=== PATIENT | female | born 2000 | race Caucasian/White ===

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

== ENCOUNTER 2022-04-19 07:34 | Emergency (ER) | payer SELFPAY ==
[~2022-04-19] VITALS: Ht 162 cm; Wt 76.2 kg
[~2022-04-19 07:34] MED LIST changes: +ACET-93 PO; -CLIN150C17 PO; +CLIN150C20 PO; +DOCU100C37 PO; +IBUP-1780 PO; +OXC5T PO
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
[2022-04-19 08:09] LABS: BILIRUBIN,URINE NEGATIVE (NEGATIVE); CLARITY,URINE CLEAR; COLOR,URINE YELLOW; GLUCOSE, URINE (UA) NEGATIVE (NEGATIVE); KETONES,URINE NEGATIVE (NEGATIVE); LEUKOCYTE ESTERASE ,URINE NEGATIVE (NEGATIVE); NITRITE,URINE NEGATIVE (NEGATIVE); PROTEIN,URINE NEGATIVE (NEGATIVE)
[2022-04-19 08:19] LABS: BACTERIA,URINE NEGATIVE /HPF; SQUAMOUS EPITHELIAL CELL,UR RARE /HPF; WBC,URINE RARE /HPF
[2022-04-19 08:24] LABS: BASOPHILS % (AUTO) 1 % (0-10); EOSINOPHILS # (AUTO) 0.4 10^3/uL (0.0-0.3); EOSINOPHILS % (AUTO) 6 % (0-10); HEMATOCRIT 42 % (35-52); HEMOGLOBIN 14.7 g/dL (11.5-16.0); LYMPHOCYTES # (AUTO) 2.1 10^3/uL (1.0-4.0); LYMPHOCYTES % (AUTO) 32 % (12-44); MEAN CORPUSCULAR HEMOGLOBIN 28 pg (25-34); MEAN CORPUSCULAR HGB CONC 35 g/dL (32-36); MEAN CORPUSCULAR VOLUME 81 fL (80-99); MEAN PLATELET VOLUME 10.8 fL (9.0-12.2); MONOCYTES # (AUTO) 0.5 10^3/uL (0.0-1.0); MONOCYTES % (AUTO) 7 % (0-12); NEUTROPHILS # (AUTO) 3.5 10^3/uL (1.8-7.8); NEUTROPHILS % (AUTO) 53 % (42-75); PLATELET COUNT 220 10^3/uL (130-400); WHITE BLOOD COUNT 6.5 10^3/uL (4.3-11.0)
[2022-04-19 08:34] LABS: POTASSIUM 3.8 MMOL/L (3.6-5.0)
[2022-04-19 08:36] LABS: CALCIUM 9.6 MG/DL (8.5-10.1)
[2022-04-19 08:40] LABS: CREATININE SERUM 0.8 MG/DL (0.60-1.30)
--- NOTE | 2022-04-19 09:06 | Diagnostic Imaging Report ---
DATE: 04/19/2022 9:01 AM REASON FOR EXAM: Miscarriage. Follow-up. Vaginal bleeding. COMPARISON: None. TECHNIQUE: Transabdominal and transvaginal ultrasound was performed. FINDINGS: The uterus measures 6.7 x 3.8 x 5.8 cm. The endometrium measures 1.2 cm in thickness. No evidence of intrauterine gestation. No focal uterine mass. The bilateral ovaries are well visualized and have a normal appearance. The right ovary measures 3.5 x 1.9 x 1.8 cm. The left ovary measures 3.3 x 2.1 x 2.6 cm. No free fluid is visualized within the posterior cul-de-sac. IMPRESSION: 1. No evidence of intrauterine gestation. No findings to suggest retained products of conception. 2. Normal appearance of the ovaries. No evidence of ectopic . No free fluid. Dictated by: Dictated on workstation # [id number]
[2022-04-19 10:00] VITALS: BP 147/96
== END 2022-04-19 09:59 | disposition home or self-care (01) ==
LOC: EDUNIT# 07:34 → ER 07:37
DX: N93.9 Abnormal uterine and vaginal bleeding, unspecified (principal); F41.9 Anxiety disorder, unspecified; R00.0 Tachycardia, unspecified; Z28.310 Unvaccinated for COVID-19
CPT/HCPCS: 36415; 76801; 76817; 80048; 81000; 84703; 85025; 86900; 86901

== ENCOUNTER 2022-06-26 20:20 | Emergency (ER) | payer MEDICAID ==
[~2022-06-26] VITALS: Ht 162.5 cm; Wt 79.0 kg
[2022-06-26 21:04] LABS: BASOPHILS % (AUTO) 0 % (0-10); EOSINOPHILS # (AUTO) 0.5 10^3/uL (0.0-0.3); EOSINOPHILS % (AUTO) 5 % (0-10); HEMATOCRIT 39 % (35-52); HEMOGLOBIN 13.3 g/dL (11.5-16.0); LYMPHOCYTES # (AUTO) 3.5 10^3/uL (1.0-4.0); LYMPHOCYTES % (AUTO) 32 % (12-44); MEAN CORPUSCULAR HEMOGLOBIN 28 pg (25-34); MEAN CORPUSCULAR HGB CONC 35 g/dL (32-36); MEAN CORPUSCULAR VOLUME 81 fL (80-99); MEAN PLATELET VOLUME 10.5 fL (9.0-12.2); MONOCYTES # (AUTO) 0.7 10^3/uL (0.0-1.0); MONOCYTES % (AUTO) 6 % (0-12); NEUTROPHILS % (AUTO) 56 % (42-75); PLATELET COUNT 263 10^3/uL (130-400); WHITE BLOOD COUNT 10.7 10^3/uL (4.3-11.0)
[2022-06-26 21:45] LABS: BILIRUBIN,URINE NEGATIVE (NEGATIVE); CLARITY,URINE CLEAR; COLOR,URINE YELLOW; GLUCOSE, URINE (UA) NEGATIVE (NEGATIVE); KETONES,URINE NEGATIVE (NEGATIVE); LEUKOCYTE ESTERASE ,URINE NEGATIVE (NEGATIVE); NITRITE,URINE NEGATIVE (NEGATIVE); PROTEIN,URINE NEGATIVE (NEGATIVE)
[2022-06-26 22:00] LABS: BACTERIA,URINE TRACE /HPF; WBC,URINE 0-2 /HPF
--- NOTE | 2022-06-26 23:12 | ED Fall/Injury ---
General Chief Complaint: OB < 20 WEEKS Stated Complaint: FALL, 6 WEEKS , BLEEDING Nursing Triage Note: Pt presents with c/o vaginal bleeding after a fall down approx 14 steps. She reports she over stepped the top step fell back and slid down on bottom, and fell foward into a wall at bottom of steps. C/o R buttock pain and noted vaginal bleeding approx 15 min later. Source: patient Exam Limitations: no limitations History of Present Illness Date Seen by Provider: Jun 26, 2022 Time Seen by Provider: 20:25 Initial Comments This 22-year-old young lady presents to the emergency room with complaints of vaginal bleeding after falling down approximately 14 steps. Patient describes an incident in which her feet went out from underneath her and she fell backwards striking her right buttock on the stairs. She then slid down the stairs on her bottom. When she landed at the bottom of the stairs, she fell forward from a sitting position and bumped her face on the wall. She passed some clots of blood vaginally shortly after the event that has had no vaginal bleeding since. She has had some mild cramping without tenderness. She has some soreness at the right buttock, but she denies any significant injury elsewhere. She has no severe pain. Patient describes being in April and there is some controversy about what happened to that . She states then having a menstrual period on May 16 and now being again. Her obstetrical provider is Dr. Hammond. She has not yet had an ultrasound for this . Allergies and Home Medications Allergies Coded Allergies: Penicillins (Verified Allergy, Unknown, 10/01/16) Patient Home Medication List Home Medication List Reviewed: Yes Acetaminophen (Acetaminophen) 500 Mg Tablet, 1,000 MG PO Q6HR Prescribed by: JACQUELIN GUEVARA on 04/23/19550 Docusate Sodium (Docusate Sodium) 100 Mg Capsule, 100 MG PO BID Prescribed by: JACQUELIN MOTAS on 04/23/19550 Ibuprofen (Ibuprofen) 800 Mg Tablet, 800 MG PO Q8H Prescribed by: JACQUELIN E NAKULS on 04/23/19550 Oxycodone Hcl (Oxycodone IR) 5 Mg Tab, 5 MG PO Q4HR PRN for To achieve TAG Prescribed by: JACQUELIN GUEVARA on 04/23/19550 Vit No.124/Iron/FA ( Vitamin Tablet) 1 Each Tablet, 1 EACH PO DAILY, (Reported) Entered as Reported by: MIGUEL ÁNGEL SHAHID on 04/13/192021 Review of Systems Review of Systems Constitutional: no symptoms reported Eyes: No Symptoms Reported Ears, Nose, Mouth, Throat: no symptoms reported Respiratory: no symptoms reported Cardiovascular: no symptoms reported Gastrointestinal: no symptoms reported Genitourinary: see HPI : Yes Expected Date of Delivery: Feb 20, 2023 LMP: May 16, 2022 Musculoskeletal: see HPI Skin: no symptoms reported Psychiatric/Neurological: No Symptoms Reported Past Ookcbid-Cwvvao-Wjdovn Hx Patient Social History Tobacco Use?: No Substance use?: No Alcohol Use?: No Immunizations Up To Date Tetanus Booster (TDap): Less than 5yrs PED Vaccines UTD: Yes Influenza Vaccine Up-to-Date: No; Not Current Seasonal Allergies Seasonal Allergies: Yes Past Medical History Surgery/Hospitalization HX: sx- 2 c-sec Surgeries: Yes Section Respiratory: Yes Asthma Currently Using CPAP: No Currently Using BIPAP: No Cardiac: No Neurological: No : Yes Expected Date of Delivery: Feb 20, 2023 Last Menstrual Period: May 16, 2022 Female Reproductive Disorders: Denies Sexually Transmitted Disease: No HIV/AIDS: No Genitourinary: Yes (DURING , preeclampsia, placental abruption) UTI-Chronic Gastrointestinal: Yes Gastroesophageal Reflux Musculoskeletal: No Endocrine: Yes ("PRE-DIABETIC") HEENT: No Loss of Vision: Denies Hearing Impairment: Denies Cancer: No Psychosocial: Yes ("CUTTER"; 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) Anxiety, Suicide Attempts, Schizophrenia, Depression Integumentary: No Blood Disorders: No Family Medical History Alcoholism 19 FATHER Alzheimer's disease PATERANL GRANDFATHER Arthritis MATERNAL GRANDFATHER (RA) Asthma MATERNAL GRANDMOTHER Cardiovascular disease MATERNAL GRANDFATHER Coronary thrombosis MATERNAL GRANDFATHER Diabetes mellitus 19 MOTHER MATERNAL GRANDMOTHER Drug abuse 19 FATHER 19 MOTHER Hypercholesterolemia MATERNAL GRANDFATHER Hypertension 19 MOTHER MATERNAL GRANDFATHER Myocardial infarction MATERNAL GRANDFATHER Psychosocial problem G8 BROTHER Respiratory disorder MATERNAL GRANDMOTHER (COPD) No Pertinent Family Hx Physical Exam Vital Signs Vital Signs - First Documented 06/26/22 20:44 Temp 36.9 Pulse 97 Resp 18 B/P (MAP) 138/87 (104) Capillary Refill : Less Than 3 Seconds Height, Weight, BMI Height: 5'4.00" Weight: 195lbs. 0oz. 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, no motor/sensory deficits, alert, normal mood/affect, oriented x 3 Skin: normal color, warm/dry [place] Coma Score Best Eye Response: (4) Open Spontaneously Best Verbal Response: (5) Oriented Best Motor Response: (6) Obeys Commands Masoud Total: 15 Progress/Results/Core Measures Results/Orders Lab Results Laboratory Tests Test 06/26/22 20:57 06/26/22 21:34 Range/Units White Blood Count 10.7 4.3-11.0 10^3/uL Red Blood Count 4.78 3.80-5.11 10^6/uL Hemoglobin 13.3 11.5-16.0 g/dL Hematocrit 39 35-52 % Mean Corpuscular Volume 81 80-99 fL Mean Corpuscular Hemoglobin 28 25-34 pg Mean Corpuscular Hemoglobin Concent 35 32-36 g/dL Red Cell Distribution Width 12.3 10.0-14.5 % Platelet Count 263 130-400 10^3/uL Mean Platelet Volume 10.5 9.0-12.2 fL Immature Granulocyte % (Auto) 0 % Neutrophils (%) (Auto) 56 42-75 % Lymphocytes (%) (Auto) 32 12-44 % Monocytes (%) (Auto) 6 0-12 % Eosinophils (%) (Auto) 5 0-10 % Basophils (%) (Auto) 0 0-10 % Neutrophils # (Auto) 6.0 1.8-7.8 10^3/uL Lymphocytes # (Auto) 3.5 1.0-4.0 10^3/uL Monocytes # (Auto) 0.7 0.0-1.0 10^3/uL Eosinophils # (Auto) 0.5 H 0.0-0.3 10^3/uL Basophils # (Auto) 0.0 0.0-0.1 10^3/uL Immature Granulocyte # (Auto) 0.0 0.0-0.1 10^3/uL Human Chorionic Gonadotropin, Quant 2058 H <5 MIU/ML Urine Color YELLOW Urine Clarity CLEAR Urine pH 7.0 5-9 Urine Specific [place] 1.020 1.016-1.022 Urine Protein NEGATIVE NEGATIVE Urine Glucose (UA) NEGATIVE NEGATIVE Urine Ketones NEGATIVE NEGATIVE Urine Nitrite NEGATIVE NEGATIVE Urine Bilirubin NEGATIVE NEGATIVE Urine Urobilinogen 0.2 < = 1.0 MG/DL Urine Leukocyte Esterase NEGATIVE NEGATIVE Urine RBC (Auto) NEGATIVE NEGATIVE Urine RBC NONE /HPF Urine WBC 0-2 /HPF Urine Squamous Epithelial Cells 10-25 H /HPF Urine Crystals NONE /LPF Urine Bacteria TRACE /HPF Urine Casts NONE /LPF Urine Mucus NEGATIVE /LPF Urine Culture Indicated NO My Orders Orders - JOSE KING MD Cbc With Automated Diff (06/26/22 20:25) Hcg,Quantitative (06/26/22 20:25) Ua Culture If Indicated (06/26/22 20:26) Vital Signs/I&O 06/26/22 06/26/22 20:44 23:19 Temp 36.9 Pulse 97 88 Resp 18 20 B/P (MAP) 138/87 (104) 411/84 Blood Pressure Mean: 104 Progress Progress Note : Progress Note Blood type from prior visit was reviewed and was positive. RhoGAM was not necessary. Patient had a relatively unremarkable exam with minimal tenderness on the right buttock and no significant tenderness over the suprapubic region. hCG was low at around 4000. Urinalysis was normal. CBC was also normal. Patient was discharged with a prescription for ultrasound in the morning to ensure intrauterine and viability. Departure Impression Primary Impression: Fall down stairs Qualified Codes: W10.8XXA - Fall (on) (from) other stairs and steps, initial encounter Additional Impressions: Vaginal bleeding in Contusion, buttock Qualified Codes: S30.0XXA - Contusion of lower back and pelvis, initial encounter Disposition: 01 HOME, SELF-CARE Condition: Stable Departure-Patient Inst. Decision time for Depature: 23:08 Referrals: [facility] (PCP/Family) Primary Care Physician Patient Instructions: Bleeding in Early (DC) Add. Discharge Instructions: You may take Tylenol (acetaminophen) up to 1000 mg every 6 hours as needed for pain. You may return with your order form for ultrasound tomorrow morning at 7:30 AM. You also need to follow-up with Dr. Hammond at [facility] to have your hCG hormone level monitored. Return to care if you have worsening symptoms despite following these instructions. All discharge instructions reviewed with patient and/or family. Voiced understanding. Copy Copies To 1: BIA HAMMOND MD, JOSHUA T MD Jun 26, 2022 23:12
[2022-06-26 23:19] VITALS: BP 411/84
== END 2022-06-26 23:20 | disposition home or self-care (01) ==
LOC: EDUNIT# 20:20 → ER 20:23
DX: O9A.211 Injury, poisoning and certain other consequences of external causes complicating pregnancy, first trimester (principal); O20.9 Hemorrhage in early pregnancy, unspecified; S30.0XXA Contusion of lower back and pelvis, initial encounter; Z3A.01 Less than 8 weeks gestation of pregnancy; Z28.310 Unvaccinated for COVID-19; W10.8XXA Fall (on) (from) other stairs and steps, initial encounter; W22.8XXA Striking against or struck by other objects, initial encounter
CPT/HCPCS: 36415; 81000; 84702; 85025

== ENCOUNTER 2022-07-18 18:59 | Emergency (ER) | payer MEDICAID ==
[~2022-07-18] VITALS: Ht 172 cm; Wt 82.7 kg
--- NOTE | 2022-07-18 19:36 | ED GU-Female ---
General Chief Complaint: OB < 20 WEEKS Stated Complaint: HEAVY MENSTRAL Nursing Triage Note: patient states since sunday night she has been "bleeding" patient states she is 8.5 weeks preg. due in February. Patient states spotting and passing clots and "chunks" states color is dark to light pink. Source: patient Exam Limitations: no limitations History of Present Illness Date Seen by Provider: Jul 18, 2022 Time Seen by Provider: 19:08 Initial Comments 22-year-old [id number] female presents to the ED with reports of vaginal bleeding since Sunday. Reports she has had some pink spotting, dark red clots, and brown discharge. She reports lower abdominal cramping. She is in 8.5 weeks . She states she had an ultrasound a couple weeks ago which confirmed she had an intrauterine . She reports she has had intermittent fevers since Sunday. She reports nausea, and dizziness since the bleeding started. She denies chest pain, shortness of air, vomiting. She last normal bowel movement yesterday. Past medical history includes asthma, prediabetes, and she was preeclamptic with 2 of her previous pregnancies which resulted in early delivery by . Allergies and Home Medications Allergies Coded Allergies: Penicillins (Verified Allergy, Unknown, 10/01/16) Patient Home Medication List Home Medication List Reviewed: Yes Acetaminophen (Acetaminophen) 500 Mg Tablet, 1,000 MG PO Q6HR Prescribed by: JACQUELIN GUEVARA on 04/23/19550 Clotrimazole (Clotrimazole) 1 % Cr, 45 GM VG HS Prescribed by: Nidia Franks on 07/18/222204 Docusate Sodium (Docusate Sodium) 100 Mg Capsule, 100 MG PO BID Prescribed by: JACQUELIN GUEVARA on 04/23/19550 Ibuprofen (Ibuprofen) 800 Mg Tablet, 800 MG PO Q8H Prescribed by: JACQUELIN GUEVARA on 04/23/19550 Oxycodone Hcl (Oxycodone IR) 5 Mg Tab, 5 MG PO Q4HR PRN for To achieve TAG Prescribed by: JACQUELIN GUEVARA on 04/23/19550 Vit No.124/Iron/FA ( Vitamin Tablet) 1 Each Tablet, 1 EACH PO DAILY, (Reported) Entered as Reported by: MIGUEL ÁNGEL SHAHID on 04/13/192021 Review of Systems Review of Systems Constitutional: see HPI Past Qqpahxe-Knlyzw-Gkfpyv Hx Immunizations Up To Date Tetanus Booster (TDap): Less than 5yrs PED Vaccines UTD: Yes Influenza Vaccine Up-to-Date: No; Not Current Seasonal Allergies Seasonal Allergies: Yes Past Medical History Surgery/Hospitalization HX: sx- 2 c-sec Surgeries: Yes Section Respiratory: Yes Asthma Currently Using CPAP: No Currently Using BIPAP: No Cardiac: No Neurological: No Female Reproductive Disorders: Denies Sexually Transmitted Disease: No HIV/AIDS: No Genitourinary: Yes (DURING , preeclampsia, placental abruption) UTI-Chronic Gastrointestinal: Yes Gastroesophageal Reflux Musculoskeletal: No Endocrine: Yes ("PRE-DIABETIC") HEENT: No Loss of Vision: Denies Hearing Impairment: Denies Cancer: No Psychosocial: Yes ("CUTTER"; 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) Anxiety, Suicide Attempts, Schizophrenia, Depression Integumentary: No Blood Disorders: No Family Medical History Alcoholism 19 FATHER Alzheimer's disease PATERANL GRANDFATHER Arthritis MATERNAL GRANDFATHER (RA) Asthma MATERNAL GRANDMOTHER Cardiovascular disease MATERNAL GRANDFATHER Coronary thrombosis MATERNAL GRANDFATHER Diabetes mellitus 19 MOTHER MATERNAL GRANDMOTHER Drug abuse 19 FATHER 19 MOTHER Hypercholesterolemia MATERNAL GRANDFATHER Hypertension 19 MOTHER MATERNAL GRANDFATHER Myocardial infarction MATERNAL GRANDFATHER Psychosocial problem G8 BROTHER Respiratory disorder MATERNAL GRANDMOTHER (COPD) No Pertinent Family Hx Physical Exam Vital Signs Vital Signs - First Documented 07/18/22 19:20 Temp 36.8 Pulse 112 Resp 20 B/P (MAP) 129/89 (102) Pulse Ox 97 O2 Delivery Room Air Capillary Refill : Less Than 3 Seconds Height, Weight, BMI Height: 5'4.00" Weight: 195lbs. 0oz. 88.732865gv; 27.00 BMI Method:Actual General Appearance: WD/WN, no apparent distress Neck: supple, normal inspection Cardiovascular: regular rate, rhythm, no edema, no gallop, no JVD, no murmur Respiratory: lungs clear, normal breath sounds, no respiratory distress, no ac cessory muscle use Gastrointestinal: normal bowel sounds, non tender, soft Extremities: normal range of motion, normal inspection Neurologic/Psychiatric: alert, normal mood/affect Skin: normal color, warm/dry Progress/Results/Core Measures Suspected Sepsis SIRS Temperature: Pulse: 112 Respiratory Rate: 20 Laboratory Tests 07/18/22 19:56: White Blood Count 9.9 Blood Pressure 129 /89 Mean: 102 Laboratory Tests 07/18/22 19:56: Creatinine 0.75, Platelet Count 220, Total Bilirubin 0.2 Results/Orders Lab Results Laboratory Tests Test 07/18/22 19:33 07/18/22 19:56 07/18/22 20:55 Range/Units Urine Color YELLOW Urine Clarity CLEAR Urine pH 5.5 5-9 Urine Specific [place] >=1.030 1.016-1.022 Urine Protein NEGATIVE NEGATIVE Urine Glucose (UA) NEGATIVE NEGATIVE Urine Ketones NEGATIVE NEGATIVE Urine Nitrite NEGATIVE NEGATIVE Urine Bilirubin NEGATIVE NEGATIVE Urine Urobilinogen 0.2 < = 1.0 MG/DL Urine Leukocyte Esterase NEGATIVE NEGATIVE Urine RBC (Auto) NEGATIVE NEGATIVE Urine RBC 0-2 /HPF Urine WBC RARE /HPF Urine Squamous Epithelial Cells 0-2 /HPF Urine Crystals NONE /LPF Urine Bacteria TRACE /HPF Urine Casts PRESENT /LPF Urine Hyaline Casts RARE /LPF Urine Mucus NEGATIVE /LPF Urine Yeast FEW H /HPF Urine Culture Indicated NO White Blood Count 9.9 4.3-11.0 10^3/uL Red Blood Count 4.64 3.80-5.11 10^6/uL Hemoglobin 12.9 11.5-16.0 g/dL Hematocrit 37 35-52 % Mean Corpuscular Volume 81 80-99 fL Mean Corpuscular Hemoglobin 28 25-34 pg Mean Corpuscular Hemoglobin Concent 35 32-36 g/dL Red Cell Distribution Width 12.9 10.0-14.5 % Platelet Count 220 130-400 10^3/uL Mean Platelet Volume 10.5 9.0-12.2 fL Immature Granulocyte % (Auto) 0 % Neutrophils (%) (Auto) 62 42-75 % Lymphocytes (%) (Auto) 26 12-44 % Monocytes (%) (Auto) 6 0-12 % Eosinophils (%) (Auto) 6 0-10 % Basophils (%) (Auto) 0 0-10 % Neutrophils # (Auto) 6.1 1.8-7.8 X 10^3 Lymphocytes # (Auto) 2.6 1.0-4.0 X 10^3 Monocytes # (Auto) 0.6 0.0-1.0 X 10^3 Eosinophils # (Auto) 0.5 H 0.0-0.3 10^3/uL Basophils # (Auto) 0.0 0.0-0.1 10^3/uL Immature Granulocyte # (Auto) 0.0 0.0-0.1 10^3/uL Percent Immature Platelet Fraction 0.0-7.6 % Sodium Level 141 135-145 MMOL/L Potassium Level 3.8 3.6-5.0 MMOL/L Chloride Level 109 H 98-107 MMOL/L Carbon Dioxide Level 21 21-32 MMOL/L Anion Gap 11 5-14 MMOL/L Blood Urea Nitrogen 16 7-18 MG/DL Creatinine 0.75 0.60-1.30 MG/DL Estimat Glomerular Filtration Rate 115 BUN/Creatinine Ratio 21 Glucose Level 100 70-105 MG/DL Calcium Level 9.3 8.5-10.1 MG/DL Corrected Calcium 9.2 8.5-10.1 MG/DL Total Bilirubin 0.2 0.1-1.0 MG/DL Aspartate Amino Transf (AST/SGOT) 15 5-34 U/L Alanine Aminotransferase (ALT/SGPT) 16 0-55 U/L Alkaline Phosphatase 72 40-136 U/L Total Protein 7.2 6.4-8.2 GM/DL Albumin 4.1 3.2-4.5 GM/DL Human Chorionic Gonadotropin, Quant 74511 H <5 MIU/ML My Orders Orders - NIDIA FRANKS APRN Ua Culture If Indicated (07/18/22 19:08) Cbc With Automated Diff (07/18/22 19:29) Hcg,Quantitative (07/18/22 19:29) Ed Iv/Invasive Line Start (07/18/22 19:29) Comprehensive Metabolic Panel (07/18/22 19:29) Ns Iv 1000 Ml (Sodium Chloride 0.9%) (07/18/22 19:45) Wet Prep (07/18/22 20:55) Azithromycin Tablet (Zithromax Tablet) (07/18/22 22:00) Medications Given in ED Current Medications Medications Dose Ordered Sig/Carol Route Start Time Stop Time Status Last Admin Dose Admin Azithromycin 1,000 mg ONCE ONCE PO 07/18/22 22:00 07/18/22 22:01 DC 07/18/22 22:06 1,000 MG Vital Signs/I&O 07/18/22 19:20 Temp 36.8 Pulse 112 Resp 20 B/P (MAP) 129/89 (102) Pulse Ox 97 O2 Delivery Room Air Capillary Refill : Less Than 3 Seconds Blood Pressure Mean: 102 Progress Note : Time: 19:36 Progress Note Patient seen and evaluated, resting comfortably in bed, no acute distress. Based on exam and symptoms, work-up initially including CBC, CMP, Rh type, UA, hCG quantitative. Departure Impression Primary Impression: Vaginal bleeding affecting early Additional Impressions: Vaginal discharge during Qualified Codes: O26.891 - Other specified related conditions, first trimester; N89.8 - Other specified noninflammatory disorders of vagina Yeast infection Disposition: HOME, SELF-CARE Condition: Stable Departure-Patient Inst. Decision time for Depature: 22:03 Referrals: [facility] (PCP/Family) Primary Care Physician Patient Instructions: Sexually-Transmitted Diseases (DC), Yeast Infection (DC) Add. Discharge Instructions: Use the vaginal cream, 1 application each night before bed for 7 nights. You will receive a phone call if your gonorrhea test comes back positive. If it is positive you will need to be treated at that time. Follow-up with Dr. Hammond. Call her office in the morning to see about moving your appointment sooner due to having vaginal bleeding. Return for worsening vaginal bleeding, severe dizziness, or any other new, concerning, or worsening symptoms. All discharge instructions reviewed with patient and/or family. Voiced understanding. Scripts Clotrimazole (Clotrimazole-7) 1 % Cream.appl 1 APPLIC VG HS for 7 Days, #7 APPLIC 0 Refills Prov: NIDIA FRANKS APRN 07/18/22 Copy Copies To 1: BIA HAMMOND MD, BRITTANY R APRN Jul 18, 2022 19:36
[2022-07-18] MEDS ORDERED: NS IV 1000 ML 1,000 ML IV SCH (19:45)
[2022-07-18 20:09] LABS: BACTERIA,URINE TRACE /HPF; BILIRUBIN,URINE NEGATIVE (NEGATIVE); CLARITY,URINE CLEAR; COLOR,URINE YELLOW; GLUCOSE, URINE (UA) NEGATIVE (NEGATIVE); KETONES,URINE NEGATIVE (NEGATIVE); LEUKOCYTE ESTERASE ,URINE NEGATIVE (NEGATIVE); NITRITE,URINE NEGATIVE (NEGATIVE); PH,URINE 5.5 (5-9); PROTEIN,URINE NEGATIVE (NEGATIVE); RBC,URINE 0-2 /HPF; SQUAMOUS EPITHELIAL CELL,UR 0-2 /HPF; WBC,URINE RARE /HPF
[2022-07-18 20:10] LABS: HYALINE CASTS, URINE RARE /LPF; YEAST,URINE FEW /HPF
[2022-07-18 20:11] LABS: BASOPHILS % (AUTO) 0 % (0-10); EOSINOPHILS # (AUTO) 0.5 10^3/uL (0.0-0.3); EOSINOPHILS % (AUTO) 6 % (0-10); HEMATOCRIT 37 % (35-52); HEMOGLOBIN 12.9 g/dL (11.5-16.0); LYMPHOCYTES # (AUTO) 2.6 X 10^3 (1.0-4.0); LYMPHOCYTES % (AUTO) 26 % (12-44); MEAN CORPUSCULAR HEMOGLOBIN 28 pg (25-34); MEAN CORPUSCULAR HGB CONC 35 g/dL (32-36); MEAN CORPUSCULAR VOLUME 81 fL (80-99); MEAN PLATELET VOLUME 10.5 fL (9.0-12.2); MONOCYTES # (AUTO) 0.6 X 10^3 (0.0-1.0); MONOCYTES % (AUTO) 6 % (0-12); NEUTROPHILS # (AUTO) 6.1 X 10^3 (1.8-7.8); NEUTROPHILS % (AUTO) 62 % (42-75); PLATELET COUNT 220 10^3/uL (130-400); WHITE BLOOD COUNT 9.9 10^3/uL (4.3-11.0)
[2022-07-18 20:39] LABS: POTASSIUM 3.8 MMOL/L (3.6-5.0)
[2022-07-18 20:40] LABS: ALBUMIN 4.1 GM/DL (3.2-4.5); BILIRUBIN,TOTAL 0.2 MG/DL (0.1-1.0); CALCIUM 9.3 MG/DL (8.5-10.1); CREATININE SERUM 0.75 MG/DL (0.60-1.30); TOTAL PROTEIN 7.2 GM/DL (6.4-8.2)
[2022-07-18] MEDS ORDERED: AZITHROMYCIN 250 MG TAB (ZITHROMAX) PO ONE (22:00)
[2022-07-18] MEDS ORDERED: CLOT45CR28 VG (22:05)
[2022-07-18] MEDS ORDERED: CLOT45CR22 VG (22:15)
[2022-07-18 22:23] VITALS: BP 122/76
== END 2022-07-18 22:25 | disposition home or self-care (01) ==
LOC: EDUNIT# 18:59 → ER 19:05
DX: O20.9 Hemorrhage in early pregnancy, unspecified (principal); O23.591 Infection of other part of genital tract in pregnancy, first trimester; B37.31 Acute candidiasis of vulva and vagina; Z88.0 Allergy status to penicillin; Z3A.08 8 weeks gestation of pregnancy; Z28.310 Unvaccinated for COVID-19
CPT/HCPCS: 36415; 80053; 81000; 84702; 85025; 87210; 87491

== ENCOUNTER 2022-07-21 21:11 | Emergency (ER) | payer MEDICAID ==
[~2022-07-21 21:11] MED LIST changes: +CLOT45CR22 VG; +CLOT45CR28 VG
--- NOTE | 2022-07-21 21:28 | ED Abdominal Pain ---
General Stated Complaint: ABDOMINAL PAIN Source of Information: Patient Exam Limitations: No Limitations History of Present Illness Date Seen by Provider: Jul 21, 2022 Time Seen by Provider: 21:26 Initial Comments Patient is a 22-year-old female who is G4, L2 who is currently 9 weeks . She states she had an ultrasound a couple weeks ago confirmed intrauterine . 22-year-old [id number] female presents to the ED with reports of vaginal bleeding since Sunday. Reports she has had some pink spotting, dark red clots, and brown discharge. She reports lower abdominal cramping. She is in 8.5 weeks . She states she had an ultrasound a couple weeks ago which confirmed she had an intrauterine . She reports she has had intermittent fevers since Sunday. She reports nausea, and dizziness since the bleeding started. She denies chest pain, shortness of air, vomiting. She last normal bowel movement yesterday. Past medical history includes asthma, prediabetes, and she was preeclamptic with 2 of her previous pregnancies which resulted in early delivery by . Allergies and Home Medications Allergies Coded Allergies: Penicillins (Verified Allergy, Unknown, 10/01/16) Patient Home Medication List Home Medication List Reviewed: Yes Acetaminophen (Acetaminophen) 500 Mg Tablet, 1,000 MG PO Q6HR Prescribed by: JACQUELIN GUEVARA on 04/23/19550 Clotrimazole (Clotrimazole-7) 1 % Cream.appl, 1 APPLIC VG HS Prescribed by: Nidia Saleem on 07/18/222214 Docusate Sodium (Docusate Sodium) 100 Mg Capsule, 100 MG PO BID Prescribed by: JACQUELIN GUEVARA on 04/23/19550 Ibuprofen (Ibuprofen) 800 Mg Tablet, 800 MG PO Q8H Prescribed by: JACQUELIN GUEVARA on 04/23/19550 Oxycodone Hcl (Oxycodone IR) 5 Mg Tab, 5 MG PO Q4HR PRN for To achieve TAG Prescribed by: JACQUELIN GUEVARA on 04/23/19550 Vit No.124/Iron/FA ( Vitamin Tablet) 1 Each Tablet, 1 EACH PO DAILY, (Reported) Entered as Reported by: MIGUEL ÁNGEL SHAHID on 04/13/192021 Review of Systems Review of Systems Constitutional: No chills, No diaphoresis, No fever, No malaise, No weakness EENTM: No Double Vision, No Eye Pain Cardiovascular: Denies Chest Pain, Denies Lightheadedness Gastrointestinal: Abdominal Pain; Denies Diarrhea; Nausea; Denies Vomiting Genitourinary: Denies Burning, Denies Discharge, Denies Drainage, Denies Frequency, Denies Flank Pain; Other (vaginal bleeding) Musculoskeletal: No back pain, No joint pain Skin: No change in color, No change in hair/nails All Other Systems Reviewed Negative Unless Noted: Yes Past Oseygnv-Egorlk-Gjllmq Hx Immunizations Up To Date Tetanus Booster (TDap): Less than 5yrs PED Vaccines UTD: Yes Seasonal Allergies Seasonal Allergies: Yes Past Medical History Surgery/Hospitalization HX: sx- 2 c-sec Surgeries: Yes Section Respiratory: Yes Asthma Currently Using CPAP: No Currently Using BIPAP: No Cardiac: No Neurological: No Female Reproductive Disorders: Denies Sexually Transmitted Disease: No HIV/AIDS: No Genitourinary: Yes (DURING , preeclampsia, placental abruption) UTI-Chronic Gastrointestinal: Yes Gastroesophageal Reflux Musculoskeletal: No Endocrine: Yes ("PRE-DIABETIC") HEENT: No Loss of Vision: Denies Hearing Impairment: Denies Cancer: No Psychosocial: Yes ("CUTTER"; 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) Anxiety, Suicide Attempts, Schizophrenia, Depression Integumentary: No Blood Disorders: No Family Medical History Alcoholism 19 FATHER Alzheimer's disease PATERANL GRANDFATHER Arthritis MATERNAL GRANDFATHER (RA) Asthma MATERNAL GRANDMOTHER Cardiovascular disease MATERNAL GRANDFATHER Coronary thrombosis MATERNAL GRANDFATHER Diabetes mellitus 19 MOTHER MATERNAL GRANDMOTHER Drug abuse 19 FATHER 19 MOTHER Hypercholesterolemia MATERNAL GRANDFATHER Hypertension 19 MOTHER MATERNAL GRANDFATHER Myocardial infarction MATERNAL GRANDFATHER Psychosocial problem G8 BROTHER Respiratory disorder MATERNAL GRANDMOTHER (COPD) No Pertinent Family Hx Physical Exam Vital Signs Vital Signs - First Documented 07/21/22 21:31 Temp 36.8 Pulse 99 Resp 16 B/P (MAP) 120/79 (93) Pulse Ox 100 O2 Delivery Room Air Capillary Refill : Height/Weight/BMI Height: 5'4.00" Weight: 195lbs. 0oz. 88.311943ib; 27.00 BMI Method:Actual General Appearance: WD/WN, no apparent distress HEENT: PERRL/EOMI, normal ENT inspection, TMs normal, pharynx normal Neck: non-tender, full range of motion, supple Respiratory: chest non-tender, lungs clear, no respiratory distress Cardiovascular: regular rate, rhythm, no edema, no gallop, no JVD Gastrointestinal: normal bowel sounds, soft, no organomegaly, tenderness (Suprapubic tenderness. No rebound or guarding. Normal bowel sounds throughout) Rectal: normal exam Extremities: normal range of motion, non-tender, normal inspection, no pedal edema Back: normal inspection, no CVA tenderness, no vertebral tenderness Neurologic/Psychiatric: cut off saw tender metal II-XII nml as tested, no motor/sensory deficits, alert, normal mood/affect, oriented x 3 Progress/Results/Core Measures Results/Orders Lab Results Laboratory Tests Test 07/21/22 22:00 07/21/22 22:16 Range/Units White Blood Count 10.0 4.3-11.0 10^3/uL Red Blood Count 4.62 3.80-5.11 10^6/uL Hemoglobin 12.7 11.5-16.0 g/dL Hematocrit 37 35-52 % Mean Corpuscular Volume 80 80-99 fL Mean Corpuscular Hemoglobin 28 25-34 pg Mean Corpuscular Hemoglobin Concent 34 32-36 g/dL Red Cell Distribution Width 12.8 10.0-14.5 % Platelet Count 224 130-400 10^3/uL Mean Platelet Volume 10.2 9.0-12.2 fL Immature Granulocyte % (Auto) 0 % Neutrophils (%) (Auto) 57 42-75 % Lymphocytes (%) (Auto) 30 12-44 % Monocytes (%) (Auto) 8 0-12 % Eosinophils (%) (Auto) 5 0-10 % Basophils (%) (Auto) 0 0-10 % Neutrophils # (Auto) 5.7 1.8-7.8 10^3/uL Lymphocytes # (Auto) 3.0 1.0-4.0 10^3/uL Monocytes # (Auto) 0.8 0.0-1.0 10^3/uL Eosinophils # (Auto) 0.5 H 0.0-0.3 10^3/uL Basophils # (Auto) 0.0 0.0-0.1 10^3/uL Immature Granulocyte # (Auto) 0.0 0.0-0.1 10^3/uL Sodium Level 139 135-145 MMOL/L Potassium Level 3.8 3.6-5.0 MMOL/L Chloride Level 109 H 98-107 MMOL/L Carbon Dioxide Level 21 21-32 MMOL/L Anion Gap 9 5-14 MMOL/L Blood Urea Nitrogen 10 7-18 MG/DL Creatinine 0.67 0.60-1.30 MG/DL Estimat Glomerular Filtration Rate 127 BUN/Creatinine Ratio 15 Glucose Level 79 70-105 MG/DL Calcium Level 8.9 8.5-10.1 MG/DL Corrected Calcium 8.9 8.5-10.1 MG/DL Total Bilirubin 0.3 0.1-1.0 MG/DL Aspartate Amino Transf (AST/SGOT) 12 5-34 U/L Alanine Aminotransferase (ALT/SGPT) 14 0-55 U/L Alkaline Phosphatase 72 40-136 U/L Total Protein 7.2 6.4-8.2 GM/DL Albumin 4.0 3.2-4.5 GM/DL Human Chorionic Gonadotropin, Quant 43446 H <5 MIU/ML Urine Color DARK YELLOW Urine Clarity CLOUDY Urine pH 6.0 5-9 Urine Specific [place] 1.025 H 1.016-1.022 Urine Protein TRACE H NEGATIVE Urine Glucose (UA) NEGATIVE NEGATIVE Urine Ketones NEGATIVE NEGATIVE Urine Nitrite NEGATIVE NEGATIVE Urine Bilirubin NEGATIVE NEGATIVE Urine Urobilinogen 0.2 < = 1.0 MG/DL Urine Leukocyte Esterase TRACE H NEGATIVE Urine RBC (Auto) 3+ H NEGATIVE Urine RBC 5-10 H /HPF Urine WBC 2-5 /HPF Urine Squamous Epithelial Cells >50 H /HPF Urine Crystals NONE /LPF Urine Bacteria LARGE H /HPF Urine Casts NONE /LPF Urine Mucus NEGATIVE /LPF Urine Culture Indicated YES My Orders Orders - SUSANNE HINTON Cbc With Automated Diff (07/21/22 21:40) Comprehensive Metabolic Panel (07/21/22 21:40) Hcg,Quantitative (07/21/22 21:42) Urinalysis (07/21/22 22:15) Urine Culture (07/21/22 22:16) Vital Signs/I&O 07/21/22 07/21/22 21:31 23:10 Temp 36.8 Pulse 99 92 Resp 16 B/P (MAP) 120/79 (93) 115/73 Pulse Ox 100 98 O2 Delivery Room Air Departure Communication (PCP) Reviewed previous ER visits, H&P and lab testing. Patient was seen here on July 18 for vaginal bleeding during early . She states she has had continuous spotting with passing of dark clots over the past week. Lower abdominal cramping that started today. Patient had STD swabs performed on the which were unremarkable. She had a negative urinalysis. Her beta quant level [id number]. She was recommended to come to the ER by her physiological chemist Dr. Nolasco for recheck of her beta quant. Patient with suprapubic discomfort. Bedside pelvic ultrasound noted with cardiac activity. Roughly 140 bpm. Patient refused pelvic exam. Discussed with pelvic exam able to examine the cervix to rule out a open cervix or tissue in the vaginal canal patient acknowledges. She states she had a positive pelvic ultrasound performed at [facility]. Patient is Rh+. No RhoGAM needed. CBC, CMP beta quant with urinalysis. Urinalysis trace leukocytes with plus 3 red blood cell. Squamous cell noted. Likely more contamination versus UTI. Patient Was not treated at this time. Pending culture. CBC, CMP grossly unremarkable. Beta quant [id number]. Improvement from her last level 3 days ago. Still concern for threatened miscarriage. I do recommend continue beta quant and serial ultrasounds by her DETECTIVE CAPTAIN. Recommend Tylenol for pain she refused anything at this time. She had no right lower quadrant tenderness suggesting appendicitis. No upper quadrant tenderness suggesting other etiologies such as cholecystitis, gastritis, duodenitis. She is currently on prenatals. She is afebrile. Does not appear toxic. No evidence of surgical abdomen at this time. Continue monitoring symptoms at home. If any worsening symptoms to return back to ED Impression Primary Impression: Vaginal bleeding affecting early Disposition: 01 HOME, SELF-CARE Condition: Stable Departure-Patient Inst. Decision time for Depature: 23:01 Referrals: [facility] (PCP/Family) Primary Care Physician Patient Instructions: Bleeding in Early (DC) Add. Discharge Instructions: Recommend following up with your DETECTIVE CAPTAIN for further evaluation. If any worsening symptoms return back to ED SUSANNE HINTON Jul 21, 2022 21:28
[2022-07-21 22:12] LABS: BASOPHILS % (AUTO) 0 % (0-10); EOSINOPHILS # (AUTO) 0.5 10^3/uL (0.0-0.3); EOSINOPHILS % (AUTO) 5 % (0-10); HEMATOCRIT 37 % (35-52); HEMOGLOBIN 12.7 g/dL (11.5-16.0); LYMPHOCYTES % (AUTO) 30 % (12-44); MEAN CORPUSCULAR HEMOGLOBIN 28 pg (25-34); MEAN CORPUSCULAR HGB CONC 34 g/dL (32-36); MEAN CORPUSCULAR VOLUME 80 fL (80-99); MEAN PLATELET VOLUME 10.2 fL (9.0-12.2); MONOCYTES # (AUTO) 0.8 10^3/uL (0.0-1.0); MONOCYTES % (AUTO) 8 % (0-12); NEUTROPHILS # (AUTO) 5.7 10^3/uL (1.8-7.8); NEUTROPHILS % (AUTO) 57 % (42-75); PLATELET COUNT 224 10^3/uL (130-400)
[2022-07-21 22:23] LABS: POTASSIUM 3.8 MMOL/L (3.6-5.0)
[2022-07-21 22:24] LABS: CALCIUM 8.9 MG/DL (8.5-10.1)
[2022-07-21 22:25] LABS: TOTAL PROTEIN 7.2 GM/DL (6.4-8.2)
[2022-07-21 22:26] LABS: BILIRUBIN,URINE NEGATIVE (NEGATIVE); CLARITY,URINE CLOUDY; COLOR,URINE DARK YELLOW; GLUCOSE, URINE (UA) NEGATIVE (NEGATIVE); KETONES,URINE NEGATIVE (NEGATIVE); LEUKOCYTE ESTERASE ,URINE TRACE (NEGATIVE); NITRITE,URINE NEGATIVE (NEGATIVE); PROTEIN,URINE TRACE (NEGATIVE)
[2022-07-21 22:27] LABS: BILIRUBIN,TOTAL 0.3 MG/DL (0.1-1.0)
[2022-07-21 22:29] LABS: CREATININE SERUM 0.67 MG/DL (0.60-1.30)
[2022-07-21 22:36] LABS: BACTERIA,URINE LARGE /HPF; SQUAMOUS EPITHELIAL CELL,UR >50 /HPF
[2022-07-21 23:10] VITALS: BP 115/73
[2022-07-22] MEDS ORDERED: METR-145 PO (22:13)
== END 2022-07-21 23:12 | disposition home or self-care (01) ==
LOC: EDUNIT# 21:11 → ER 21:13
DX: O20.9 Hemorrhage in early pregnancy, unspecified (principal); Z28.310 Unvaccinated for COVID-19; Z3A.09 9 weeks gestation of pregnancy
CPT/HCPCS: 36415; 80053; 81000; 84702; 85025; 87088

== ENCOUNTER 2022-07-25 12:47 | Emergency (ER) | payer MEDICAID ==
[~2022-07-25 12:47] MED LIST changes: +METR-145 PO
--- NOTE | 2022-07-25 13:12 | ED GU-Female ---
General Chief Complaint: OB < 20 WEEKS Stated Complaint: VAGINAL BLEEDING Nursing Triage Note: PT PRESENTS TO ED WITH C/O VAGINAL BLEEDING X 2.5 WEEKS THAT BEGAN BROWN IN COLOR AND SPOTTING. YESTERDAY, IT BECAME BRIGHT RED WITH CLOTS. PT SAW HER OB YESTERDAY AND US SHOWED SUBCHORIONIC HEMATOMA AND REFERRED TO COME TO ER. Source: patient Exam Limitations: no limitations History of Present Illness Date Seen by Provider: Jul 25, 2022 Time Seen by Provider: 12:51 Initial Comments 22yoF that is at roughly 9 WGA via 1st trimester ultrasound coming in due to vaginal bleeding. The bleeding started roughly 2 and half weeks ago with some brown spotting, now has increased significantly where today she had to change her pad every hour for a couple of hours in a row. Has been in the ER numerous times for this, last had an ultrasound yesterday confirming intrauterine again with heart rate positive. She called the nurse triage line, and was referred to the ER today again. Denies any abdominal pain or cramping, vaginal discharge that is unusual, diarrhea, nausea, vomiting, fever, dysuria, or any other concerns. Her previous miscarriage was a "chemical ". Her previous deliveries were both via section due to severe preeclampsia at 34 weeks and 36 weeks respectively. Allergies and Home Medications Allergies Coded Allergies: Penicillins (Verified Allergy, Unknown, 10/01/16) Patient Home Medication List Home Medication List Reviewed: Yes Acetaminophen (Acetaminophen) 500 Mg Tablet, 1,000 MG PO Q6HR Prescribed by: JACQUELIN GUEVARA on 04/23/19550 Clotrimazole (Clotrimazole-7) 1 % Cream.appl, 1 APPLIC VG HS Prescribed by: Nidia Saleem on 07/18/222214 Docusate Sodium (Docusate Sodium) 100 Mg Capsule, 100 MG PO BID Prescribed by: JACQUELIN GUEVARA on 04/23/19550 Ibuprofen (Ibuprofen) 800 Mg Tablet, 800 MG PO Q8H Prescribed by: JACQUELIN GUEVARA on 04/23/19550 Metronidazole (Metronidazole) 500 Mg Tablet, 500 MG PO BID Prescribed by: Nidia Saleem on 07/22/222212 Oxycodone Hcl (Oxycodone IR) 5 Mg Tab, 5 MG PO Q4HR PRN for To achieve TAG Prescribed by: JACQUELIN GUEVARA on 04/23/19 0551 Vit No.124/Iron/FA ( Vitamin Tablet) 1 Each Tablet, 1 EACH PO DAILY, (Reported) Entered as Reported by: MIGUEL ÁNGEL SHAHID on 04/13/192021 Review of Systems Review of Systems Constitutional: No fever EENTM: no symptoms reported Respiratory: no symptoms reported Cardiovascular: no symptoms reported Gastrointestinal: no symptoms reported Genitourinary: see HPI : Yes Musculoskeletal: no symptoms reported Skin: no symptoms reported Psychiatric/Neurological: No Symptoms Reported Endocrine: No Symptoms Reported Past [place]-Prjpcm-Mzwvvl Hx Patient Social History Tobacco Use?: No Substance use?: No Alcohol Use?: No Pt feels they are or have been: No Immunizations Up To Date Tetanus Booster (TDap): Less than 5yrs PED Vaccines UTD: Yes Seasonal Allergies Seasonal Allergies: Yes Past Medical History Surgery/Hospitalization HX: sx- 2 c-sec Surgeries: Yes Section Respiratory: Yes Asthma Currently Using CPAP: No Currently Using BIPAP: No Cardiac: No Neurological: No Female Reproductive Disorders: Denies Sexually Transmitted Disease: No HIV/AIDS: No Genitourinary: Yes (DURING , preeclampsia, placental abruption) UTI-Chronic Gastrointestinal: Yes Gastroesophageal Reflux Musculoskeletal: No Endocrine: Yes ("PRE-DIABETIC") HEENT: No Loss of Vision: Denies Hearing Impairment: Denies Cancer: No Psychosocial: Yes ("CUTTER"; 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) Anxiety, Suicide Attempts, Schizophrenia, Depression Integumentary: No Blood Disorders: No Family Medical History Alcoholism 19 FATHER Alzheimer's disease PATERANL GRANDFATHER Arthritis MATERNAL GRANDFATHER (RA) Asthma MATERNAL GRANDMOTHER Cardiovascular disease MATERNAL GRANDFATHER Coronary thrombosis MATERNAL GRANDFATHER Diabetes mellitus 19 MOTHER MATERNAL GRANDMOTHER Drug abuse 19 FATHER 19 MOTHER Hypercholesterolemia MATERNAL GRANDFATHER Hypertension 19 MOTHER MATERNAL GRANDFATHER Myocardial infarction MATERNAL GRANDFATHER Psychosocial problem G8 BROTHER Respiratory disorder MATERNAL GRANDMOTHER (COPD) No Pertinent Family Hx Physical Exam Vital Signs Vital Signs - First Documented 07/25/22 12:57 Temp 37.1 Pulse 110 Resp 18 B/P (MAP) 144/86 (105) Pulse Ox 97 O2 Delivery Room Air Capillary Refill : Less Than 3 Seconds Height, Weight, BMI Height: 5'4.00" Weight: 195lbs. 0oz. 88.539303ql; 27.00 BMI Method:Actual General Appearance: WD/WN, no apparent distress HEENT: PERRL/EOMI, normal ENT inspection, pharynx normal Neck: non-tender, full range of motion, supple, normal inspection Cardiovascular: regular rate, rhythm, no edema, no murmur Respiratory: chest non-tender, lungs clear, normal breath sounds, no respiratory distress, no accessory muscle use Gastrointestinal: normal bowel sounds, non tender, soft; No distended, No guarding, No rebound Pelvic: normal external exam, normal adnexa, no cerv. motion tender, no masses, other (Cervical os is closed, minimal bleeding) Back: normal inspection Extremities: normal range of motion, non-tender, normal inspection, no pedal edema, no calf tenderness, normal capillary refill Neurologic/Psychiatric: no motor/sensory deficits, alert, normal mood/affect Skin: normal color, warm/dry Progress/Results/Core Measures Suspected Sepsis SIRS Temperature: Pulse: 110 Respiratory Rate: 18 Laboratory Tests 07/25/22 13:05: White Blood Count 9.0 Blood Pressure 144 /86 Mean: 105 Laboratory Tests 07/25/22 13:05: Creatinine 0.73, Platelet Count 218, Total Bilirubin 0.4 Results/Orders Lab Results Laboratory Tests Test 07/25/22 13:05 07/25/22 13:13 Range/Units White Blood Count 9.0 4.3-11.0 10^3/uL Red Blood Count 4.83 3.80-5.11 10^6/uL Hemoglobin 13.3 11.5-16.0 g/dL Hematocrit 39 35-52 % Mean Corpuscular Volume 80 80-99 fL Mean Corpuscular Hemoglobin 28 25-34 pg Mean Corpuscular Hemoglobin Concent 35 32-36 g/dL Red Cell Distribution Width 12.7 10.0-14.5 % Platelet Count 218 130-400 10^3/uL Mean Platelet Volume 10.0 9.0-12.2 fL Immature Granulocyte % (Auto) 0 % Neutrophils (%) (Auto) 62 42-75 % Lymphocytes (%) (Auto) 27 12-44 % Monocytes (%) (Auto) 6 0-12 % Eosinophils (%) (Auto) 4 0-10 % Basophils (%) (Auto) 0 0-10 % Neutrophils # (Auto) 5.6 1.8-7.8 10^3/uL Lymphocytes # (Auto) 2.4 1.0-4.0 10^3/uL Monocytes # (Auto) 0.5 0.0-1.0 10^3/uL Eosinophils # (Auto) 0.4 H 0.0-0.3 10^3/uL Basophils # (Auto) 0.0 0.0-0.1 10^3/uL Immature Granulocyte # (Auto) 0.0 0.0-0.1 10^3/uL Sodium Level 137 135-145 MMOL/L Potassium Level 4.0 3.6-5.0 MMOL/L Chloride Level 106 98-107 MMOL/L Carbon Dioxide Level 21 21-32 MMOL/L Anion Gap 10 5-14 MMOL/L Blood Urea Nitrogen 9 7-18 MG/DL Creatinine 0.73 0.60-1.30 MG/DL Estimat Glomerular Filtration Rate 119 BUN/Creatinine Ratio 12 Glucose Level 103 70-105 MG/DL Calcium Level 9.2 8.5-10.1 MG/DL Corrected Calcium 9.2 8.5-10.1 MG/DL Total Bilirubin 0.4 0.1-1.0 MG/DL Aspartate Amino Transf (AST/SGOT) 12 5-34 U/L Alanine Aminotransferase (ALT/SGPT) 14 0-55 U/L Alkaline Phosphatase 76 40-136 U/L Total Protein 7.3 6.4-8.2 GM/DL Albumin 4.0 3.2-4.5 GM/DL Urine Color BROWN H Urine Clarity SL CLOUDY Urine pH 5.5 5-9 Urine Specific [place] 1.020 1.016-1.022 Urine Protein 1+ H NEGATIVE Urine Glucose (UA) NEGATIVE NEGATIVE Urine Ketones NEGATIVE NEGATIVE Urine Nitrite NEGATIVE NEGATIVE Urine Bilirubin NEGATIVE NEGATIVE Urine Urobilinogen 0.2 < = 1.0 MG/DL Urine Leukocyte Esterase NEGATIVE NEGATIVE Urine RBC (Auto) 3+ H NEGATIVE Urine RBC 10-25 H /HPF Urine WBC RARE /HPF Urine Squamous Epithelial Cells 10-25 H /HPF Urine Crystals NONE /LPF Urine Bacteria LARGE H /HPF Urine Casts NONE /LPF Urine Mucus SMALL H /LPF Urine Culture Indicated CULTURE PENDING My Orders Orders - SUSANNE RAMIREZ MD Cbc With Automated Diff (07/25/22 13:05) Comprehensive Metabolic Panel (07/25/22 13:05) Hcg,Quantitative (07/25/22 13:05) Ed Iv/Invasive Line Start (07/25/22 13:05) Urinalysis (07/25/22 13:05) Urine Culture (07/25/22 13:05) Vital Signs/I&O 07/25/22 07/25/22 12:57 13:33 Temp 37.1 Pulse 110 93 Resp 18 B/P (MAP) 144/86 (105) 124/77 (93) Pulse Ox 97 O2 Delivery Room Air Capillary Refill : Less Than 3 Seconds Blood Pressure Mean: 105 Progress Note : Progress Note 22-year-old female with above history coming in due to vaginal bleeding during . ABCs were intact and vitals were stable on presentation. Physical exam with a soft and nontender abdomen. Pelvic exam showing her cervical os being closed with a very minimal amount of bleeding which was reassuring. At this point I discussed with the patient that clinically this is a threatened miscarriage. I discussed that prior to 20 weeks gestation, unfortunately there is not much that can be done other than continue to watch and wait. Hemoglobin today is actually higher than it was the other day, no clinical concerns from my standpoint for hemorrhage. White blood cell count normal, potassium normal, sodium normal, creatinine normal, all reassuring. Not having any abdominal pain on repeat abdominal exam which is reassuring as well. No CT scan obtained because of this. Very unlikely that she is having appendicitis versus some other more dangerous etiology. I did do a [id number] ultrasound confirming she still has an intrauterine , heart rate 160. Urinalysis with a dirty specimen with multiple squamous epithelial cells. However, there is a large amount of bacteria. Given her , we will start her on Macrobid. I believe she is otherwise stable for discharge with outpatient follow-up. She was sent home with strict return precautions. Departure Impression Primary Impression: Threatened miscarriage Additional Impression: Asymptomatic bacteriuria during Disposition: HOME, SELF-CARE Condition: Stable Departure-Patient Inst. Decision time for Depature: 14:00 Referrals: [facility] (PCP/Family) Primary Care Physician Patient Instructions: Bleeding In Early Add. Discharge Instructions: Technically this is a threatened miscarriage since you are having vaginal bleeding during . Since your cervix is closed, that means that this still has a chance to go on to be a healthy . Unfortunately, there is not much that can be done prior to being 20 weeks in regards to this. When we checked your cervix today, it did not have a concerning amount of bleeding and was bleeding relatively slowly at least during our exam. Today, your hemoglobin was greater than 13. The other day it was around 12 which is reassuring that you are not bleeding too much. A good rule of thumb, if you have a maxi pad that is fully saturated with blood and you are needing to change it every hour for several hours in a row, that is typically when there is too m uch bleeding. This does not count, if there is still any white left on the pad. Take Tylenol as needed for pain. Follow-up with your regular OB as well. You did have bacteria in your urine today, we do recommend treating that during . You will be on a second antibiotic for the next 5 days. This is safe to take with the other antibiotic, and is safe during . Scripts Nitrofurantoin Monohyd/M-Cryst (Macrobid 100 mg Capsule) 100 Mg Capsule 1 TAB PO BID for 5 Days, #10 CAP Prov: SUSANNE RAMIREZ MD 07/25/22 Work/School Note: Work Release Form Date Seen in the Emergency Department: Jul 25, 2022 Return to Work: Jul 26, 2022 Restrictions: No Restrictions SUSANNE RAMIREZ MD Jul 25, 2022 13:11
[2022-07-25 13:15] LABS: BASOPHILS % (AUTO) 0 % (0-10); EOSINOPHILS # (AUTO) 0.4 10^3/uL (0.0-0.3); EOSINOPHILS % (AUTO) 4 % (0-10); HEMATOCRIT 39 % (35-52); HEMOGLOBIN 13.3 g/dL (11.5-16.0); LYMPHOCYTES # (AUTO) 2.4 10^3/uL (1.0-4.0); LYMPHOCYTES % (AUTO) 27 % (12-44); MEAN CORPUSCULAR HEMOGLOBIN 28 pg (25-34); MEAN CORPUSCULAR HGB CONC 35 g/dL (32-36); MEAN CORPUSCULAR VOLUME 80 fL (80-99); MONOCYTES # (AUTO) 0.5 10^3/uL (0.0-1.0); MONOCYTES % (AUTO) 6 % (0-12); NEUTROPHILS # (AUTO) 5.6 10^3/uL (1.8-7.8); NEUTROPHILS % (AUTO) 62 % (42-75); PLATELET COUNT 218 10^3/uL (130-400)
[2022-07-25 13:19] LABS: BILIRUBIN,URINE NEGATIVE (NEGATIVE); CLARITY,URINE SL CLOUDY; COLOR,URINE BROWN; GLUCOSE, URINE (UA) NEGATIVE (NEGATIVE); KETONES,URINE NEGATIVE (NEGATIVE); LEUKOCYTE ESTERASE ,URINE NEGATIVE (NEGATIVE); NITRITE,URINE NEGATIVE (NEGATIVE); PH,URINE 5.5 (5-9); PROTEIN,URINE 1+ (NEGATIVE)
[2022-07-25 13:32] LABS: CALCIUM 9.2 MG/DL (8.5-10.1)
[2022-07-25 13:33] LABS: TOTAL PROTEIN 7.3 GM/DL (6.4-8.2)
[2022-07-25 13:35] LABS: BACTERIA,URINE LARGE /HPF; WBC,URINE RARE /HPF
[2022-07-25 13:35] LABS: BILIRUBIN,TOTAL 0.4 MG/DL (0.1-1.0)
[2022-07-25 13:37] LABS: CREATININE SERUM 0.73 MG/DL (0.60-1.30)
[2022-07-25] MEDS ORDERED: NITR-65 PO (13:52)
[2022-07-25 14:21] VITALS: BP 120/69
== END 2022-07-25 14:22 | disposition home or self-care (01) ==
LOC: EDUNIT# 12:47 → ER 12:49
DX: O20.0 Threatened abortion (principal); O99.891 Other specified diseases and conditions complicating pregnancy; R82.71 Bacteriuria; Z88.0 Allergy status to penicillin; Z3A.09 9 weeks gestation of pregnancy
CPT/HCPCS: 36415; 80053; 81000; 84702; 85025; 87088

== ENCOUNTER 2022-08-29 23:00 | Emergency (ER) | payer MEDICAID ==
[~2022-08-29] VITALS: Ht 162 cm; Wt 82.5 kg
[~2022-08-29 23:00] MED LIST changes: +NITR-65 PO
[2022-08-29 23:23] LABS: BASOPHILS % (AUTO) 0 % (0-10); EOSINOPHILS # (AUTO) 0.5 10^3/uL (0.0-0.3); EOSINOPHILS % (AUTO) 4 % (0-10); HEMATOCRIT 36 % (35-52); HEMOGLOBIN 12.8 g/dL (11.5-16.0); LYMPHOCYTES # (AUTO) 3.4 10^3/uL (1.0-4.0); LYMPHOCYTES % (AUTO) 26 % (12-44); MEAN CORPUSCULAR HEMOGLOBIN 28 pg (25-34); MEAN CORPUSCULAR HGB CONC 36 g/dL (32-36); MEAN CORPUSCULAR VOLUME 78 fL (80-99); MEAN PLATELET VOLUME 10.4 fL (9.0-12.2); MONOCYTES # (AUTO) 0.8 10^3/uL (0.0-1.0); MONOCYTES % (AUTO) 6 % (0-12); NEUTROPHILS # (AUTO) 8.5 10^3/uL (1.8-7.8); NEUTROPHILS % (AUTO) 64 % (42-75); PLATELET COUNT 216 10^3/uL (130-400); WHITE BLOOD COUNT 13.2 10^3/uL (4.3-11.0)
[2022-08-29 23:24] LABS: BILIRUBIN,URINE NEGATIVE (NEGATIVE); CLARITY,URINE CLEAR; COLOR,URINE YELLOW; GLUCOSE, URINE (UA) NEGATIVE (NEGATIVE); KETONES,URINE NEGATIVE (NEGATIVE); LEUKOCYTE ESTERASE ,URINE 2+ (NEGATIVE); NITRITE,URINE NEGATIVE (NEGATIVE); PH,URINE 6.5 (5-9); PROTEIN,URINE NEGATIVE (NEGATIVE)
[2022-08-29 23:33] LABS: AMORPHOUS SEDIMENT,UR LARGE AMOR URATES /LPF; BACTERIA,URINE LARGE /HPF; RBC,URINE 0-2 /HPF; WBC,URINE 50-100 /HPF
[2022-08-29 23:34] LABS: POTASSIUM 3.8 MMOL/L (3.6-5.0)
[2022-08-29 23:35] LABS: CALCIUM 9.7 MG/DL (8.5-10.1)
[2022-08-29 23:36] LABS: TOTAL PROTEIN 7.5 GM/DL (6.4-8.2)
[2022-08-29 23:38] LABS: BILIRUBIN,TOTAL 0.2 MG/DL (0.1-1.0)
[2022-08-29 23:40] LABS: CREATININE SERUM 1.05 MG/DL (0.60-1.30)
[2022-08-29 23:42] LABS: MAGNESIUM 1.9 MG/DL (1.6-2.4)
[2022-08-29] MEDS ORDERED: cefTRIAXone IV/IM 1,000 MG in NS (IVPB) 50 ML IV ONE (23:45)
--- NOTE | 2022-08-29 23:54 | ED Abdominal Pain ---
General Chief Complaint: OB < 20 WEEKS Stated Complaint: ABDOMINAL PAIN|14 WEEKS Nursing Triage Note: PATIENT REPORTS UPPER RT ABDOMINAL PAIN, RADIATING TO RT SHOULDER. STATES 13 WKS PREG. PATIENT STATES SHE IS CURRENTLY BEING TREATED FOR A YEAST INFECTION. STATES SEEN AT [facility] SUNDAY. PATIENT CONCERNED WALKIN DID NOT FIND BABYS HEART BEAT. Source of Information: Patient History of Present Illness Date Seen by Provider: August 29, 2022 Time Seen by Provider: 23:13 Initial Comments PT ARRIVES VIA POV FROM HOME PT STATES SHE IS 13 WEEKS SHE HAS BEEN HAVING EPIGASTRIC AND RUQ PAIN RADIATING TO HER RIGHT SHOULDER TODAY--STATES IT IS A BURNING SENSATION SHE HAS HAD NAUSEA, AND VOMITED X 1 TODAY. SHE HAD A NORMAL BM TODAY SHE STATES SHE THINKS SHE IS GETTING A UTI, HAVING SOME PAIN / BURNING ON URINATION NO FEVER NO PELVIC PAIN NO VAGINAL BLEEDING OR DISCHARGE STATES SHE WENT TO [facility] ON SUNDAY AND WAS TOLD SHE HAD A "YEAST INFECTION" AND WAS PRESCRIBED A VAGINAL CREAM. NO VAGINAL OR PELVIC EXAM WAS DONE, ONLY UA WAS DONE. PT STATES "THEY COULDN'T FIND THE HEART BEAT" PT SAW PASTEURIZING SUPERVISOR AT DR. HAMMOND'S OFFICE LAST WEEK ON Sunday08/22/22 FOR OB EXAM LMP WAS END OF APRIL AND HAS HAD A COUPLE OF ULTRASOUNDS FOR THIS DUE TO EARLIER BLEEDING. . SHE HAS NOT HAD ANY BLEEDING FOR A FEW WEEKS PT STATES SHE IS AB 2. SHE HAS HAD 2 C-SECTIONS--ONE HERE 04/20/19, AND HER LAST ONE IN [place] 08/11/2021. SHE HAS 2 MISCARRIAGES IN FIRST TRIMESTER. NO D&C'S NEEDED. SHE STATES SHE HAD PRE-ECLAMPSIA WITH BOTH OF HER FULL TERM DELIVERIES. PCP: DR. HAMMOND AT [facility] Allergies and Home Medications Allergies Coded Allergies: Penicillins (Verified Allergy, Unknown, 10/01/16) Patient Home Medication List Home Medication List Reviewed: Yes Acetaminophen (Acetaminophen) 500 Mg Tablet, 1,000 MG PO Q6HR Prescribed by: JACQUELIN GUEVARA on 04/23/19 0551 Cefdinir (Cefdinir) 300 Mg Capsule, 300 MG PO BID Prescribed by: BINA ARRIETA on 08/30/22 0020 Clotrimazole (Clotrimazole-7) 1 % Cream.appl, 1 APPLIC VG HS Prescribed by: Nidia Saleem on 07/18/222214 Docusate Sodium (Docusate Sodium) 100 Mg Capsule, 100 MG PO BID Prescribed by: JACQUELIN GUEVARA on 04/23/19 05 Ibuprofen (Ibuprofen) 800 Mg Tablet, 800 MG PO Q8H Prescribed by: JACQUELIN GUEVARA on 04/23/19 05 Metoclopramide HCl (Reglan) 10 Mg Tablet, 10 MG PO Q6H Prescribed by: BINA ARRIETA on 08/30/22 0020 Metronidazole (Metronidazole) 500 Mg Tablet, 500 MG PO BID Prescribed by: Nidia Saleem on 07/22/222212 Nitrofurantoin Monohyd/M-Cryst (Macrobid 100 mg Capsule) 100 Mg Capsule, 1 TAB PO BID Prescribed by: SUSANNE RAMIREZ on 07/25/22 135 Oxycodone Hcl (Oxycodone IR) 5 Mg Tab, 5 MG PO Q4HR PRN for To achieve TAG Prescribed by: JACQUELIN GUEVARA on 04/23/19 05 Vit No.124/Iron/FA ( Vitamin Tablet) 1 Each Tablet, 1 EACH PO DAILY, (Reported) Entered as Reported by: MIGUEL ÁNGEL SHAHID on 04/13/192021 Sucralfate (Carafate) 1 Gram Tablet, 1 GM PO QID Prescribed by: BINA ARRIETA on 08/30/22 0020 Review of Systems Review of Systems Constitutional: no symptoms reported Respiratory: No Symptoms Reported Cardiovascular: No Symptoms Reported Gastrointestinal: See HPI, Abdominal Pain; Denies Constipated; Nausea Genitourinary: See HPI, Burning; Denies Flank Pain; Pain Musculoskeletal: see HPI; No back pain Skin: no symptoms reported Psychiatric/Neurological: No Symptoms Reported Endocrine: No Symptoms Reported Hematologic/Lymphatic: No Symptoms Reported Past Eyapcdy-Kdzjrb-Rfntep Hx Patient Social History Tobacco Use?: Yes Tobacco type used: Cigarettes Smoking Status: Current Everyday Smoker Substance use?: Yes Substance type: Marijuana Alcohol Use?: Yes Alcohol Frequency: Once in a while Immunizations Up To Date Tetanus Booster (TDap): Less than 5yrs PED Vaccines UTD: Yes Seasonal Allergies Seasonal Allergies: Yes Past Medical History Surgery/Hospitalization HX: sx- 2 c-sec Surgeries: Yes ( X 2) Section Respiratory: Yes Asthma Currently Using CPAP: No Currently Using BIPAP: No Cardiac: Yes (PRE-ECLAMPSIA) Neurological: No : Yes Female Reproductive Disorders: Denies Sexually Transmitted Disease: No HIV/AIDS: No Genitourinary: Yes (DURING , preeclampsia, placental abruption) UTI-Chronic Gastrointestinal: Yes Gastroesophageal Reflux Musculoskeletal: No Endocrine: Yes ("PRE-DIABETIC") HEENT: No Loss of Vision: Denies Hearing Impairment: Denies Cancer: No Psychosocial: Yes ("CUTTER"; 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) Anxiety, Suicide Attempts, Schizophrenia, Depression Integumentary: No Blood Disorders: No Family Medical History Alcoholism 19 FATHER Alzheimer's disease PATERANL GRANDFATHER Arthritis MATERNAL GRANDFATHER (RA) Asthma MATERNAL GRANDMOTHER Cardiovascular disease MATERNAL GRANDFATHER Coronary thrombosis MATERNAL GRANDFATHER Diabetes mellitus 19 MOTHER MATERNAL GRANDMOTHER Drug abuse 19 FATHER 19 MOTHER Hypercholesterolemia MATERNAL GRANDFATHER Hypertension 19 MOTHER MATERNAL GRANDFATHER Myocardial infarction MATERNAL GRANDFATHER Psychosocial problem G8 BROTHER Respiratory disorder MATERNAL GRANDMOTHER (COPD) No Pertinent Family Hx Physical Exam Vital Signs Vital Signs - First Documented 08/29/22 23:05 Temp 36.6 Pulse 112 Resp 18 B/P (MAP) 127/84 (98) Pulse Ox 97 O2 Delivery Room Air Capillary Refill : Less Than 3 Seconds Height/Weight/BMI Height: 5'4.00" Weight: 195lbs. 0oz. [id number]; 31.00 BMI Method:Actual General Appearance: WD/WN, no apparent distress, other (WALKS UPRIGHT AND MOVES QUICKLY WITHOUT DIFFICULTY. SHE CHANGES POSITIONS QUICKLY AND WITHOUT DIFFICULTY--GOES FROM SITTING GUATEMALAN-STYLE TO LAYING FLAT AND OUTSTRETCHED, BACK TO SITTING UP STRADDLING THE BED. HAIR IS DYED BRIGHT RED) HEENT: PERRL/EOMI; No scleral icterus (R), No scleral icterus (L) Neck: normal inspection Respiratory: normal breath sounds, no respiratory distress, no accessory muscle use Cardiovascular: regular rate, rhythm, no murmur Gastrointestinal: normal bowel sounds, soft, no organomegaly; No distended, No guarding, No rebound; tenderness (VERY MILD EPIGASTRIC AND RUQ TENDERNESS. ); No hernia, No mass Extremities: normal inspection, normal capillary refill Back: no CVA tenderness Neurologic/Psychiatric: director strategic account management II-XII nml as tested, no motor/sensory deficits, alert, normal mood/affect, oriented x 3 Skin: normal color, warm/dry, tattoos/piercings (EXTENSIVE TATTOOS ) Progress/Results/Core Measures Results/Orders Lab Results Laboratory Tests Test 08/29/22 23:10 08/29/22 23:15 Range/Units Urine Color YELLOW Urine Clarity CLEAR Urine pH 6.5 5-9 Urine Specific [place] 1.020 1.016-1.022 Urine Protein NEGATIVE NEGATIVE Urine Glucose (UA) NEGATIVE NEGATIVE Urine Ketones NEGATIVE NEGATIVE Urine Nitrite NEGATIVE NEGATIVE Urine Bilirubin NEGATIVE NEGATIVE Urine Urobilinogen 0.2 < = 1.0 MG/DL Urine Leukocyte Esterase 2+ H NEGATIVE Urine RBC (Auto) TRACE-I H NEGATIVE Urine RBC 0-2 /HPF Urine WBC 50-100 H /HPF Urine Squamous Epithelial Cells 5-10 /HPF Urine Crystals PRESENT H /LPF Urine Amorphous Sediment LARGE TEJAS URATES H /LPF Urine Bacteria LARGE H /HPF Urine Casts NONE /LPF Urine Mucus SMALL H /LPF Urine Culture Indicated YES Urine Opiates Screen NEGATIVE NEGATIVE Urine Oxycodone Screen NEGATIVE NEGATIVE Urine Methadone Screen NEGATIVE NEGATIVE Urine Propoxyphene Screen NEGATIVE NEGATIVE Urine Barbiturates Screen NEGATIVE NEGATIVE Ur Tricyclic Antidepressants Screen NEGATIVE NEGATIVE Urine Phencyclidine Screen NEGATIVE NEGATIVE Urine Amphetamines Screen NEGATIVE NEGATIVE Urine Methamphetamines Screen NEGATIVE NEGATIVE Urine Benzodiazepines Screen NEGATIVE NEGATIVE Urine Cocaine Screen NEGATIVE NEGATIVE Urine Cannabinoids Screen NEGATIVE NEGATIVE White Blood Count 13.2 H 4.3-11.0 10^3/uL Red Blood Count 4.59 3.80-5.11 10^6/uL Hemoglobin 12.8 11.5-16.0 g/dL Hematocrit 36 35-52 % Mean Corpuscular Volume 78 L 80-99 fL Mean Corpuscular Hemoglobin 28 25-34 pg Mean Corpuscular Hemoglobin Concent 36 32-36 g/dL Red Cell Distribution Width 13.3 10.0-14.5 % Platelet Count 216 130-400 10^3/uL Mean Platelet Volume 10.4 9.0-12.2 fL Immature Granulocyte % (Auto) 0 % Neutrophils (%) (Auto) 64 42-75 % Lymphocytes (%) (Auto) 26 12-44 % Monocytes (%) (Auto) 6 0-12 % Eosinophils (%) (Auto) 4 0-10 % Basophils (%) (Auto) 0 0-10 % Neutrophils # (Auto) 8.5 H 1.8-7.8 10^3/uL Lymphocytes # (Auto) 3.4 1.0-4.0 10^3/uL Monocytes # (Auto) 0.8 0.0-1.0 10^3/uL Eosinophils # (Auto) 0.5 H 0.0-0.3 10^3/uL Basophils # (Auto) 0.0 0.0-0.1 10^3/uL Immature Granulocyte # (Auto) 0.0 0.0-0.1 10^3/uL Sodium Level 138 135-145 MMOL/L Potassium Level 3.8 3.6-5.0 MMOL/L Chloride Level 107 98-107 MMOL/L Carbon Dioxide Level 20 L 21-32 MMOL/L Anion Gap 11 5-14 MMOL/L Blood Urea Nitrogen 8 7-18 MG/DL Creatinine 1.05 0.60-1.30 MG/DL Estimat Glomerular Filtration Rate 77 BUN/Creatinine Ratio 8 Glucose Level 91 70-105 MG/DL Calcium Level 9.7 8.5-10.1 MG/DL Corrected Calcium 9.7 8.5-10.1 MG/DL Magnesium Level 1.9 1.6-2.4 MG/DL Total Bilirubin 0.2 0.1-1.0 MG/DL Aspartate Amino Transf (AST/SGOT) 12 5-34 U/L Alanine Aminotransferase (ALT/SGPT) 10 0-55 U/L Alkaline Phosphatase 73 40-136 U/L Total Protein 7.5 6.4-8.2 GM/DL Albumin 4.0 3.2-4.5 GM/DL Amylase Level 43 25-125 U/L Lipase 21 8-78 U/L Human Chorionic Gonadotropin, Quant 12813 H <5 MIU/ML Serum Alcohol < 10 <10 MG/DL My Orders Orders - BINA ARRIETA DO Ua Culture If Indicated (08/29/22 23:11) Ed Iv/Invasive Line Start (08/29/22 23:11) Monitor-Rhythm Ecg Trace Only (08/29/22 23:11) Amylase (08/29/22 23:11) Cbc With Automated Diff (08/29/22 23:11) Comprehensive Metabolic Panel (08/29/22 23:11) Hcg,Quantitative (08/29/22 23:11) Lipase (08/29/22 23:11) Magnesium (08/29/22 23:11) Heart Tones (08/29/22 23:11) Urine Culture (08/29/22 23:10) Ceftriaxone Iv/Im (Rocephin Iv/Im) (08/29/22 23:45) Alcohol (08/29/22 23:56) Drug Screen Stat (Urine) (08/29/22 23:56) Medications Given in ED Current Medications Medications Dose Ordered Sig/Carol Route Start Time Stop Time Status Last Admin Dose Admin Ceftriaxone Sodium 1000 mg/ Sodium Chloride 50 ml @ 100 mls/hr ONCE ONCE IV 08/29/22 23:45 08/30/22 00:14 DC 08/30/22 00:15 100 MLS/HR Vital Signs/I&O 08/29/22 08/30/22 23:05 00:29 Temp 36.6 Pulse 112 88 Resp 18 20 B/P (MAP) 127/84 (98) 135/83 Pulse Ox 97 99 O2 Delivery Room Air Room Air Blood Pressure Mean: 98 Progress Progress Note : Progress Note FHR 158 ON MY EXAM CBC, CMP, UA, QUANT B HCG, ORDERED UA SHOWS 2+ LEUKOCYTES, 50-100 WBC, AND LARGE BACTERIA--CULTURE IS PENDING CBC AND CMP UNREMARKABLE QUANT BETA HCG IS > 60,000 PT HAD NO SYMPTOMS DURING ER STAY VITALS STABLE. PT IS AFEBRILE. NO VAGINAL BLEEDING OR DISCHARGE OR PELVIC PAIN, NO TENDERNESS OVER SUPRAPUBIC/PELVIC AREA, WITH GOOD FHT'S THERE IS NO ULTRASOUND AVAILABLE AT THIS HOUR, AND PT'S SYMPTOMS DO NOT REQUIRE EMERGENT ULTRASOUND TONIGHT. DISCUSSED TEST RESULTS WITH PT, SYMPTOMATIC TREATMENT, DIET, MEDICATIONS, NEED FOR FOLLOW UP AND RETURN PRECAUTIONS DISCUSSED THAT IF HER SYMPTOMS CONTINUE, SHE MAY NEED A SCHEDULED OUTPATIENT ULTRASOUND OF HER UPPER ABDOMEN, AND THAT WOULD NEED TO BE DETERMINED BY AND ORDERED BY HER PCP, DR. HAMMOND. REVIEWED PRIOR RECORDS INCLUDING MULTIPLE ER VISITS, ADMIT FOR DELIVERY, TESTS/PROCEDURES. Departure Impression Primary Impression: UTI IN EARLY Additional Impression: UPPER ABDOMINAL PAIN IN EARLY Disposition: 01 HOME, SELF-CARE Condition: Stable Departure-Patient Inst. Decision time for Depature: 00:15 Referrals: BIA HAMMOND MD (PCP/Family) Primary Care Physician Patient Instructions: Stomach Pain in Early , Urinary tract infections in Add. Discharge Instructions: HOME, REST LOTS OF CLEAR LIQUIDS--WATER, BROTH, JELLO, GATORADE BRATS DIET--BANANAS, RICE, APPLESAUCE, TOAST, SALTINES YOU MAY TYLENOL NEEDED FOR PAIN FOLLOW UP WITH DR. HAMMOND THIS WEEK FOR FURTHER CARE--[facility] RETURN TO ER IF SYMPTOMS WORSEN All discharge instructions reviewed with patient and/or family. Voiced understanding. Scripts Sucralfate (Carafate) 1 Gram Tablet 1 GM PO QID, #30 TAB Prov: BINA ARRIETA DO 08/30/22 Metoclopramide HCl (Reglan) 10 Mg Tablet 10 MG PO Q6H for Nausea/Vomiting, #10 TAB Prov: BINA ARRIETA DO 08/30/22 Cefdinir (Cefdinir) 300 Mg Capsule 300 MG PO BID, #20 CAP Prov: BINA ARRIETA DO 08/30/22 BINA ARRIETA DO August 29, 2022 23:54
[2022-08-30 00:14] LABS: AMPHETAMINE SCREEN, URINE NEGATIVE (NEGATIVE); BARBITURATE SCREEN URINE NEGATIVE (NEGATIVE); BENZODIAZEPINES SCREEN URINE NEGATIVE (NEGATIVE); CANNABINOID SCREEN, URINE NEGATIVE (NEGATIVE); COCAINE SCREEN URINE NEGATIVE (NEGATIVE); METHADONE STAT NEGATIVE (NEGATIVE); OPIATE SCREEN URINE NEGATIVE (NEGATIVE); OXYCODONE STAT NEGATIVE (NEGATIVE); PROPOXYPHENE STAT NEGATIVE (NEGATIVE); TRICYCLIC ANTIDEPRESSANTS SCRE NEGATIVE (NEGATIVE)
[2022-08-30] MEDS ORDERED: CEFD300C3 PO (00:20)
[2022-08-30] MEDS ORDERED: METO-310 PO (00:20)
[2022-08-30] MEDS ORDERED: SUCR1TAB36 PO (00:20)
[2022-08-30 00:29] VITALS: BP 135/83
== END 2022-08-30 00:39 | disposition home or self-care (01) ==
LOC: EDUNIT# 23:00 → ER 23:02
DX: O23.41 Unspecified infection of urinary tract in pregnancy, first trimester (principal); N39.0 Urinary tract infection, site not specified; O26.891 Other specified pregnancy related conditions, first trimester; R10.11 Right upper quadrant pain; R10.13 Epigastric pain; O99.331 Smoking (tobacco) complicating pregnancy, first trimester; F17.210 Nicotine dependence, cigarettes, uncomplicated; Z3A.13 13 weeks gestation of pregnancy; Z88.0 Allergy status to penicillin; Z28.310 Unvaccinated for COVID-19
CPT/HCPCS: 36415; 80053; 80306; 80320; 81000; 82150; 83690; 83735; 84702; 85025; 87088

== ENCOUNTER 2022-09-11 15:49 | Emergency (ER) | payer MEDICAID ==
[~2022-09-11] VITALS: Ht 163 cm; Wt 84.0 kg
[~2022-09-11 15:49] MED LIST changes: +CEFD300C3 PO; +METO-310 PO; +SUCR1TAB36 PO
--- NOTE | 2022-09-11 16:21 | ED GU-Female ---
General Chief Complaint: OB < 20 WEEKS Stated Complaint: ABD PAIN Nursing Triage Note: PT TO [facility] WITH CC OF ABD PAIN, DARK DISCHARGE, 17 WKS , HER 40 POUND CHILD JUMPED ON HER ABD ABOUT 1430. STATES HAVING A BLADDER INFECTION AND IS NOT TAKING ABX AT THIS TIME. BLOODY URINE. G-4, P-2 Source: patient Exam Limitations: no limitations (SUSANNE HINTON) History of Present Illness Date Seen by Provider: Sep 11, 2022 Time Seen by Provider: 16:18 Initial Comments Is a 22-year-old female presents ED with lower abdominal pain. This occurred around 2:00 today. Patient states her 40 pound kid jumped on her lower abdomen. She developed immediate pain to the left lower quadrant. Pain has been constant. Has not been able to walk. Started having dark vaginal bleeding. She is unclear how much bleeding. She was not able to go get a pad. She also reports pain with urination. Patient Was treated for a UTI 2 weeks ago and states she finished the antibiotic but cannot recall the antibiotic. She denies of any fever, nausea vomiting, diarrhea. She reports frequent urination with some mild pain and discomfort. She denies chest pain, shortness of breath, cough. Currently on prenatals. Denies taking thing for pain. Was brought to ED by EMS. Patient is G4, P2 (SUSANNE HINTON) Allergies and Home Medications Allergies Coded Allergies: Penicillins (Verified Allergy, Unknown, 10/01/16) Patient Home Medication List Home Medication List Reviewed: Yes (SUSANNE HINTON) Acetaminophen (Acetaminophen) 500 Mg Tablet, 1,000 MG PO Q6HR Prescribed by: JACQUELIN GUEVARA on 04/23/19 0551 Cefdinir (Cefdinir) 300 Mg Capsule, 300 MG PO BID Prescribed by: BINA ARRIETA on 08/30/22 0020 Clotrimazole (Clotrimazole-7) 1 % Cream.appl, 1 APPLIC VG HS Prescribed by: Nidia Saleem on 07/18/22 2215 Docusate Sodium (Docusate Sodium) 100 Mg Capsule, 100 MG PO BID Prescribed by: JACQUELIN GUEVARA on 04/23/19 0551 Ibuprofen (Ibuprofen) 800 Mg Tablet, 800 MG PO Q8H Prescribed by: JACQUELIN GUEVARA on 04/23/19 0551 Metoclopramide HCl (Reglan) 10 Mg Tablet, 10 MG PO Q6H Prescribed by: BINA ARRIETA on 08/30/22 0020 Metronidazole (Metronidazole) 500 Mg Tablet, 500 MG PO BID Prescribed by: Nidia Saleem on 07/22/22 2213 Nitrofurantoin Monohyd/M-Cryst (Macrobid 100 mg Capsule) 100 Mg Capsule, 1 TAB PO BID Prescribed by: SUSANNE RAMIREZ on 07/25/22 1352 Oxycodone Hcl (Oxycodone IR) 5 Mg Tab, 5 MG PO Q4HR PRN for To achieve TAG Prescribed by: JACQUELIN GUEVARA on 04/23/19 0551 Vit No.124/Iron/FA ( Vitamin Tablet) 1 Each Tablet, 1 EACH PO DAILY, (Reported) Entered as Reported by: MIGUEL ÁNGEL SHAHID on 04/13/192021 Sucralfate (Carafate) 1 Gram Tablet, 1 GM PO QID Prescribed by: BINA ARRIETA on 08/30/22 0020 Review of Systems Review of Systems Constitutional: No chills, No diaphoresis EENTM: No see HPI, No ear pain, No blurred vision, No double vision, No eye pain Respiratory: No cough, No dyspnea on exertion Cardiovascular: No edema Gastrointestinal: abdominal pain; No diarrhea; nausea, vomiting Genitourinary: denies burning; dysuria, frequency Expected Date of Delivery: Feb 25, 2023 Musculoskeletal: No back pain, No joint pain Skin: No change in color, No change in hair/nails (SUSANNE HINTON) All Other Systemes Reviewed Negative Unless Noted: Yes (SUSANNE HINTON) Past Ieuojcf-Emvdma-Fmffrb Hx Patient Social History Tobacco Use?: No Substance use?: No Alcohol Use?: No (SUSANNE HINTON) Immunizations Up To Date Tetanus Booster (TDap): Less than 5yrs PED Vaccines UTD: Yes First/Initial COVID19 Vaccinat: NO (SUSANNE HINTON) Seasonal Allergies Seasonal Allergies: Yes (SUSANNE HINTON) Past Medical History Surgery/Hospitalization HX: sx- 2 c-sec, PRE DIABETIC, PREG HTN, ASTHMA Surgeries: Yes ( X 2) Section Respiratory: Yes Asthma Currently Using CPAP: No Currently Using BIPAP: No Cardiac: Yes (PRE-ECLAMPSIA) Neurological: No Expected Date of Delivery: Feb 25, 2023 Last Menstrual Period: May 10, 2022 Female Reproductive Disorders: Denies Sexually Transmitted Disease: No HIV/AIDS: No Genitourinary: Yes (DURING , preeclampsia, placental abruption) UTI-Chronic Gastrointestinal: Yes Gastroesophageal Reflux Musculoskeletal: No Endocrine: Yes ("PRE-DIABETIC") HEENT: No Loss of Vision: Denies Hearing Impairment: Denies Cancer: No Psychosocial: Yes ("CUTTER"; 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) Anxiety, Suicide Attempts, Schizophrenia, Depression Integumentary: No Blood Disorders: No (SUSANNE HINTON) Family Medical History Alcoholism 19 FATHER Alzheimer's disease PATERANL GRANDFATHER Arthritis MATERNAL GRANDFATHER (RA) Asthma MATERNAL GRANDMOTHER Cardiovascular disease MATERNAL GRANDFATHER Coronary thrombosis MATERNAL GRANDFATHER Diabetes mellitus 19 MOTHER MATERNAL GRANDMOTHER Drug abuse 19 FATHER 19 MOTHER Hypercholesterolemia MATERNAL GRANDFATHER Hypertension 19 MOTHER MATERNAL GRANDFATHER Myocardial infarction MATERNAL GRANDFATHER Psychosocial problem G8 BROTHER Respiratory disorder MATERNAL GRANDMOTHER (COPD) No Pertinent Family Hx (SUSANNE HINTON) Physical Exam Vital Signs Vital Signs - First Documented 09/11/22 15:52 Temp 37.5 Pulse 107 Resp 20 B/P (MAP) 130/80 (97) Pulse Ox 97 O2 Delivery Room Air (JOES KING MD) Vital Signs Capillary Refill : Less Than 3 Seconds (SUSANNE HINTON) Height, Weight, BMI Height: 5'4.00" Weight: 195lbs. 0oz. 88.769443oa; 31.00 BMI Method:Actual General Appearance: WD/WN, no apparent distress HEENT: PERRL/EOMI, normal ENT inspection, TMs normal, pharynx normal Neck: non-tender, full range of motion, supple, normal inspection Cardiovascular: regular rate, rhythm, no edema, no gallop, no JVD Respiratory: chest non-tender, lungs clear, normal breath sounds, no respiratory distress, no accessory muscle use Gastrointestinal: normal bowel sounds, soft, no organomegaly, tenderness (Left and right lower quadrant tenderness. 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, no motor/sensory deficits, alert, normal mood/affect, oriented x 3 Skin: normal color, warm/dry (SUSANNE HINTON) Progress/Results/Core Measures Suspected Sepsis SIRS Temperature: Pulse: 107 Respiratory Rate: 20 Blood Pressure 130 /80 Mean: 97 (SUSANNE HINTON) Results/Orders Lab Results Laboratory Tests Test 09/11/22 18:21 Range/Units Urine Color YELLOW Urine Clarity CLEAR Urine pH 7.0 5-9 Urine Specific [place] 1.010 L 1.016-1.022 Urine Protein NEGATIVE NEGATIVE Urine Glucose (UA) NEGATIVE NEGATIVE Urine Ketones NEGATIVE NEGATIVE Urine Nitrite NEGATIVE NEGATIVE Urine Bilirubin NEGATIVE NEGATIVE Urine Urobilinogen 0.2 < = 1.0 MG/DL Urine Leukocyte Esterase NEGATIVE NEGATIVE Urine RBC (Auto) 3+ H NEGATIVE Urine RBC 0-2 /HPF Urine WBC RARE /HPF Urine Squamous Epithelial Cells 0-2 /HPF Urine Crystals PRESENT H /LPF Urine Amorphous Sediment FEW TEJAS PHOSPHATE H /LPF Urine Bacteria TRACE /HPF Urine Casts NONE /LPF Urine Mucus NEGATIVE /LPF Urine Culture Indicated NO (JOSE KING MD) Vital Signs/I&O Capillary Refill : Less Than 3 Seconds (SUSANNE HINTON) 2 Blood Pressure Mean: 97 Departure Communication (PCP) Reviewed previous ER visits, H&P, lab testing. Patient with an injury to her lower abdomen. She states her 40 pound son jumped on her belly. She is currently 7 weeks . Started having dark vaginal bleeding. She refused pelvic exam. She denies using any pads. Unclear how much blood at this time. Due to mechanism of injury and location of pain ultrasound was ordered which sohwed Single, live intrauterine at 15 weeks and 6 days. Estimated due date is 02/27/2023. cardiac activity 158 bpm. Soft abdomen. No bruising or swelling. She also reports urinary symptoms. Recently diagnosed UTI that grew with Staphylococcus And treated with cefdinir. She also reports increased urine frequency. No vaginal discharge or concern for sexual transmitted infection. Refused pelvic exam and swab. She did have negative chlamydia and gonorrhea few months ago. Urinalysis today was unremarkable. She has no flank pain. She is afebrile with stable vital signs. She was given Tylenol with improvement of pain. Patient with a steady gait. Pain has improved. Recommend following up with your MEDICAL TECHNOLOGIST MICROBIOLOGY in the next 2 to 3 days for reevaluation. Return precaution were discussed. Patient states bleeding is improved. this is some what limited secondary to not being able to perform exam. (SUSANNE HINTON) Impression Primary Impression: Vaginal bleeding Disposition: HOME, SELF-CARE Condition: Stable Departure-Patient Inst. Decision time for Depature: 18:41 (SUSANNE HINTON) Referrals: BIA HAMMOND MD (PCP/Family) Primary Care Physician Patient Instructions: Vaginal Bleeding in Late ED Add. Discharge Instructions: Recommend following up with your MEDICAL TECHNOLOGIST MICROBIOLOGY for further evaluation. All discharge instructions reviewed with patient and/or family. Voiced understanding. ATTENDING PHYSICIAN NOTE: I was physically present as attending physician in the emergency department during the care of this patient, but I was not directly involved in the decision making or delivery of care for this patient. (JOSE KING MD) SUSANNE HINTON Sep 11, 2022 16:21 JOSE KING MD Sep 12, 2022 12:13
--- NOTE | 2022-09-11 16:58 | Diagnostic Imaging Report ---
PROCEDURE: US OB SINGLE FETUS <14 WKS. TECHNIQUE: Multiple real-time grayscale images were obtained over the gravid uterus in various projections. INDICATION: Vaginal bleeding. . Injury.. COMPARISON: None. FINDINGS: There is a single, live intrauterine with a crown-rump length measuring 10 cm, which is consistent with a 15 week and 6 day-old fetus. heart rate was documented at 158 beats per minute. anatomy is not well seen at this early state of gestation. Gestational sac shape is appropriate. No adnexal masses are identified. Ovaries are not well visualized. There is no free fluid in the cul-de-sac. CLINICAL DATES: Gestational age 16 weeks and 1 day SURYA is 02/25/2023 IMPRESSION: Single, live intrauterine at 15 weeks and 6 days. Estimated due date is 02/27/2023. These are within range of the clinical dates. No abnormality is seen at this time. Dictated by: Dictated on workstation # [id number]
[2022-09-11] MEDS ORDERED: ACETAMINOPHEN 325 MG TABLET PO ONE (17:15)
[2022-09-11 18:26] LABS: BILIRUBIN,URINE NEGATIVE (NEGATIVE); CLARITY,URINE CLEAR; COLOR,URINE YELLOW; GLUCOSE, URINE (UA) NEGATIVE (NEGATIVE); KETONES,URINE NEGATIVE (NEGATIVE); LEUKOCYTE ESTERASE ,URINE NEGATIVE (NEGATIVE); NITRITE,URINE NEGATIVE (NEGATIVE); PROTEIN,URINE NEGATIVE (NEGATIVE)
[2022-09-11 18:38] LABS: RBC,URINE 0-2 /HPF; WBC,URINE RARE /HPF
[2022-09-11 18:39] LABS: AMORPHOUS SEDIMENT,UR FEW AMOR PHOSPHATE /LPF; BACTERIA,URINE TRACE /HPF; SQUAMOUS EPITHELIAL CELL,UR 0-2 /HPF
[2022-09-11 18:50] VITALS: BP 133/69
== END 2022-09-11 18:50 | disposition home or self-care (01) ==
LOC: EDUNIT# 15:49 → ER 15:51
DX: O20.9 Hemorrhage in early pregnancy, unspecified (principal); Z28.310 Unvaccinated for COVID-19; Z3A.15 15 weeks gestation of pregnancy
CPT/HCPCS: 76801; 81000; 99283

== ENCOUNTER 2022-09-13 16:37 | Observation (INO) | payer MEDICAID ==
[2022-09-13 16:55] VITALS: BP 102/61
[2022-09-13] MEDS: NS IV 1000 ML 1,000 ML IV SCH (17:24)
[2022-09-13 17:41] LABS: BASOPHILS % (AUTO) 0 % (0-10); EOSINOPHILS # (AUTO) 0.3 10^3/uL (0.0-0.3); EOSINOPHILS % (AUTO) 2 % (0-10); HEMATOCRIT 35 % (35-52); HEMOGLOBIN 12.3 g/dL (11.5-16.0); LYMPHOCYTES # (AUTO) 1.7 10^3/uL (1.0-4.0); LYMPHOCYTES % (AUTO) 12 % (12-44); MEAN CORPUSCULAR HEMOGLOBIN 28 pg (25-34); MEAN CORPUSCULAR HGB CONC 35 g/dL (32-36); MEAN CORPUSCULAR VOLUME 80 fL (80-99); MEAN PLATELET VOLUME 10.6 fL (9.0-12.2); MONOCYTES # (AUTO) 0.7 10^3/uL (0.0-1.0); MONOCYTES % (AUTO) 5 % (0-12); NEUTROPHILS # (AUTO) 11.5 10^3/uL (1.8-7.8); NEUTROPHILS % (AUTO) 81 % (42-75); PLATELET COUNT 196 10^3/uL (130-400); WHITE BLOOD COUNT 14.3 10^3/uL (4.3-11.0)
[2022-09-13 17:52] LABS: POTASSIUM 3.6 MMOL/L (3.6-5.0)
[2022-09-13 17:53] LABS: CALCIUM 9.6 MG/DL (8.5-10.1)
[2022-09-13 17:55] LABS: TOTAL PROTEIN 7.6 GM/DL (6.4-8.2)
[2022-09-13 17:56] LABS: BILIRUBIN,TOTAL 0.3 MG/DL (0.1-1.0)
[2022-09-13 17:58] LABS: CREATININE SERUM 0.65 MG/DL (0.60-1.30)
[2022-09-13 18:04] LABS: AMPHETAMINE SCREEN, URINE NEGATIVE (NEGATIVE); BARBITURATE SCREEN URINE NEGATIVE (NEGATIVE); BENZODIAZEPINES SCREEN URINE NEGATIVE (NEGATIVE); CANNABINOID SCREEN, URINE NEGATIVE (NEGATIVE); COCAINE SCREEN URINE NEGATIVE (NEGATIVE); METHADONE STAT NEGATIVE (NEGATIVE); OPIATE SCREEN URINE NEGATIVE (NEGATIVE); OXYCODONE STAT NEGATIVE (NEGATIVE); PROPOXYPHENE STAT NEGATIVE (NEGATIVE); TRICYCLIC ANTIDEPRESSANTS SCRE NEGATIVE (NEGATIVE)
[2022-09-13 18:07] LABS: BILIRUBIN,URINE NEGATIVE (NEGATIVE); CLARITY,URINE CLEAR; COLOR,URINE YELLOW; GLUCOSE, URINE (UA) NEGATIVE (NEGATIVE); KETONES,URINE NEGATIVE (NEGATIVE); LEUKOCYTE ESTERASE ,URINE 2+ (NEGATIVE); NITRITE,URINE NEGATIVE (NEGATIVE); PROTEIN,URINE TRACE (NEGATIVE)
[2022-09-13 18:32] LABS: AMORPHOUS SEDIMENT,UR FEW AMOR URATES /LPF; BACTERIA,URINE TRACE /HPF; RBC,URINE 50-100 /HPF
[2022-09-13 18:40] LABS: BAND NEUTROPHILS 6 %; EOSINOPHILS % (MANUAL) 1 %; LYMPHOCYTES % (MANUAL) 15 %; MONOCYTES % (MANUAL) 3 %; NEUTROPHILS % (MANUAL) 75 %; PLATELET ESTIMATE NORMAL; RBC MORPH NORMAL
[2022-09-13] MEDS ORDERED: ONDANSETRON 4 MG/2 ML (SDV) Z0FRAN ONE (19:31)
[2022-09-13] MEDS: ONDANSETRON 4 MG/2 ML (SDV) Z0FRAN IVP PRN (19:38)
[2022-09-13 20:28] VITALS: BP 122/69
[2022-09-13] MEDS: ACETAMINOPHEN 500 MG TAB (TYLENOL) PO PRN (20:28)
[2022-09-14 00:04] VITALS: BP 112/66
[2022-09-14] MEDS: NS IV 1000 ML 1,000 ML IV SCH (01:25)
[2022-09-14 04:25] VITALS: BP 106/60
[2022-09-14] MEDS: ONDANSETRON 4 MG/2 ML (SDV) Z0FRAN IVP PRN ×2 (04:37→08:50)
[2022-09-14 08:47] VITALS: BP 120/77
[2022-09-14] MEDS: ACETAMINOPHEN 500 MG TAB (TYLENOL) PO PRN (08:50)
--- NOTE | 2022-09-14 09:58 | Short Stay Summary ---
HPI History of Present Illness: 22 yo OB patient that presented with N/V, dizziness and states that she had a fall at home. She is still feeling baby moving, no ctxs, LOF, or vaginal bleeding. Denies any abdominal pain. States that she has not been able to keep alot of food down and has been slower to drink fluids. Her initial blood pressure was lower. This AM she is feeling much better after IVFs and anti emetics. She was able to tolerate some breakfast and asking to go home. Source: patient Date seen by provider: Sep 14, 2022 Time Seen by Provider: 08:45 Attending Physician Bia Nolasco MD PCP Admitting Physician: Bia Nolasco MD Attending Physician: Bia Nolasco MD Consult Date of Admission Sep 13, 2022 at 16:37 Home Medications Home Medications Reviewed patient Home Medication Reconciliation performed by pharmacy medication reconciliations electronics maintenance technician and/or nursing. Patients Allergies have been reviewed. Allergies Coded Allergies: Penicillins (Verified Allergy, Unknown, 10/01/16) XGO-Pybzwu-Ssgoqe Hx Patient Social History Drug of Choice: THC NOT SINCE AGE 14 2nd Hand Smoke Exposure: No Recent Hopitalizations: No Immunizations Up To Date Tetanus Booster (TDap): Less than 5yrs First/Initial COVID19 Vaccinat: NO Past Medical History PMHx: Severe depression with more than one suicide attempt and prolonged inpatient Psychiatric hospitalizations SurgHx: Denies Family Medical History Significant Family History: No Pertinent Family Hx Family History: Alcoholism 19 FATHER Alzheimer's disease PATERANL GRANDFATHER Arthritis MATERNAL GRANDFATHER (RA) Asthma MATERNAL GRANDMOTHER Cardiovascular disease MATERNAL GRANDFATHER Coronary thrombosis MATERNAL GRANDFATHER Diabetes mellitus 19 MOTHER MATERNAL GRANDMOTHER Drug abuse 19 FATHER 19 MOTHER Hypercholesterolemia MATERNAL GRANDFATHER Hypertension 19 MOTHER MATERNAL GRANDFATHER Myocardial infarction MATERNAL GRANDFATHER Psychosocial problem G8 BROTHER Respiratory disorder MATERNAL GRANDMOTHER (COPD) Review of Systems ([facility]C) Constitutional: No chills, No fever; malaise EENTM: nose congestion, throat pain Respiratory: cough; No short of breath Cardiovascular: no symptoms reported; No chest pain, No edema, No palpitations Gastrointestinal: No abdominal pain; loss of appetite, nausea, vomiting Genitourinary: No dysuria; frequency : Yes Musculoskeletal: no symptoms reported Skin: no symptoms reported Psychiatric/Neurological: No Symptoms Reported Physical Exam-(CHC) Physical Exam Vital Signs VS - Last 72 Hours, by Label 09/13/22 09/13/22 09/13/22 09/14/22 16:55 19:38 20:28 00:04 Temp 36.8 36.0 36.5 Pulse 103 105 80 Resp 18 18 18 B/P (MAP) 102/61 (75) 122/69 (86) 112/66 (81) Pulse Ox 97 99 96 98 O2 Delivery Room Air Room Air Room Air Room Air 09/14/22 09/14/22 04:25 08:47 Temp 36.4 37.3 Pulse 89 102 Resp 20 20 B/P (MAP) 106/60 (75) 120/77 (91) Pulse Ox 99 98 O2 Delivery Room Air Room Air Capillary Refill : General Appearance: WD/WN, no apparent distress HEENT: PERRL/EOMI Neck: non-tender, full range of motion Respiratory: chest non-tender, normal breath sounds, no respiratory distress Cardiovascular: normal peripheral pulses, regular rate, rhythm, no murmur Gastrointestinal: normal bowel sounds, non tender, soft, other (gravid uterus) Back: no CVA tenderness, no vertebral tenderness Extremities: normal range of motion, non-tender, no calf tenderness, normal capillary refill 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
[2022-09-14] MEDS ORDERED: guaiFENesin (MUCINEX) 600 MG TAB PO SCH (10:00)
[2022-09-14] MEDS ORDERED: cefTRIAXone IV/IM 1,000 MG in NS (IVPB) 50 ML IV ONE (10:00)
[2022-09-14] MEDS ORDERED: GUAI600T43 PO (10:04)
[2022-09-14] MEDS ORDERED: METR-145 PO (10:04)
[2022-09-14] MEDS ORDERED: NITR-65 PO (10:04)
--- NOTE | 2022-09-14 10:05 | Discharge Summary ---
Discharge [facility] Reconcile Patient Problems Problems Reviewed?: Yes Discharge Medications New, Converted or Re-Newed RX: Transmitted to Pharmacy (Patient would like meds Delivered) New Medications: Guaifenesin (Mucinex) 600 Mg Tab.er.12h 600 MG PO BID, #28 TAB Continued Medications: Acetaminophen (Acetaminophen) 500 Mg Tablet 1000 MG PO Q6HR, #30 TAB 0 Refills Clotrimazole (Clotrimazole-7) 1 % Cream.appl 1 APPLIC VG HS for 7 Days, #7 APPLIC 0 Refills Metoclopramide HCl (Reglan) 10 Mg Tablet 10 MG PO Q6H for Nausea/Vomiting, #10 TAB Metronidazole (Metronidazole) 500 Mg Tablet 500 MG PO BID for 7 Days, #14 TAB 0 Refills (This prescription has been renewed) Nitrofurantoin Monohyd/M-Cryst (Macrobid 100 mg Capsule) 100 Mg Capsule 1 TAB PO BID for 5 Days, #10 CAP (This prescription has been renewed) Vit No.124/Iron/FA ( Vitamin Tablet) 1 Each Tablet 1 EACH PO DAILY, TAB Sucralfate (Carafate) 1 Gram Tablet 1 GM PO QID, #30 TAB Discontinued Medications: Cefdinir (Cefdinir) 300 Mg Capsule 300 MG PO BID, #20 CAP Docusate Sodium (Docusate Sodium) 100 Mg Capsule 100 MG PO BID, #30 CAP 0 Refills Ibuprofen (Ibuprofen) 800 Mg Tablet 800 MG PO Q8H, #30 TAB 0 Refills Oxycodone Hcl (Oxycodone IR) 5 Mg Tab 5 MG PO Q4HR PRN for To achieve TAG, #30 TAB 0 Refills Patient Instructions Goal/Follow Up Appt: Nubia with primary OB provider next week Activity & Diet Discharge Diet: No Restrictions BIA HAMMOND MD Sep 14, 2022 10:05
[2022-09-18 10:19] LABS: RSV PCR TEST Not Detected (Not Detected)
--- NOTE | 2022-09-19 13:26 | Physician Query-Final Dx ---
SANDY PHILLIPS 09/19/22 1326: Final Diagnosis Give Final Diagnosis Please give Final Diagnosis and weeks of gestation BIA HAMMOND MD 10/12/22 1922: Final Diagnosis Give Final Diagnosis 15 weeks gestation SANDY PHILLIPS Sep 19, 2022 13:26 BIA HAMMOND MD Oct 12, 2022 19:22
== END 2022-09-14 10:02 | disposition home or self-care (01) ==
LOC: LDRP 16:37 → UNDOADMOB 16:37 → LDRP 16:47 → UNDODISOB 09-14 10:02
PROVIDERS: ADMIT Family Medicine; ATTEND Family Medicine
DX: O21.8 Other vomiting complicating pregnancy (principal); O26.812 Pregnancy related exhaustion and fatigue, second trimester; R42 Dizziness and giddiness; Z3A.15 15 weeks gestation of pregnancy; Z28.310 Unvaccinated for COVID-19
CPT/HCPCS: 36415; 80053; 80306; 81000; 85007; 85027; 87088; 87632; 93005; 96360; 96361; 96375; 96376; G0378

== ENCOUNTER 2022-11-14 21:16 | Outpatient (CLI) | payer MEDICAID ==
[~2022-11-14] VITALS: Ht 162.6 cm; Wt 87.4 kg
[~2022-11-14 21:16] MED LIST changes: +GUAI600T43 PO
[2022-11-14 21:51] VITALS: BP 126/75
[2022-11-14 21:58] LABS: CLARITY,URINE CLEAR; COLOR,URINE YELLOW; PH,URINE 5.5 (5-9)
[2022-11-14 21:59] LABS: BILIRUBIN,URINE NEGATIVE (NEGATIVE); GLUCOSE, URINE (UA) NEGATIVE (NEGATIVE); KETONES,URINE NEGATIVE (NEGATIVE); LEUKOCYTE ESTERASE ,URINE NEGATIVE (NEGATIVE); NITRITE,URINE NEGATIVE (NEGATIVE); PROTEIN,URINE NEGATIVE (NEGATIVE)
[2022-11-14 22:01] LABS: BACTERIA,URINE TRACE /HPF
--- NOTE | 2022-11-15 08:37 | Physician Query-Final Dx ---
Clinic Account Progress/Dx Physician Query: Please give diagnosis Please include # weeks gestation Date of Service Nov 14, 2022 at 21:16 WHEAT,AprNov 15, 2022 08:37
== END 2022-11-14 23:19 | disposition home or self-care (01) ==
LOC: LDRP 21:16 → WSo 21:16
PROVIDERS: ATTEND Family Medicine
DX: O26.52 Maternal hypotension syndrome, second trimester (principal); Z3A.25 25 weeks gestation of pregnancy
CPT/HCPCS: 81000; 99213

== ENCOUNTER 2022-12-22 20:08 | Outpatient (CLI) | payer MEDICAID ==
[~2022-12-22] VITALS: Ht 162.6 cm; Wt 90.8 kg
[2022-12-22] MEDS ORDERED: ASPI-999 PO (20:25)
[2022-12-22 20:35] VITALS: BP 125/66
[2022-12-22 21:03] VITALS: BP 130/67
[2022-12-22 21:06] VITALS: BP 130/71
[2022-12-22 21:17] LABS: BACTERIA,URINE MODERATE /HPF; BILIRUBIN,URINE NEGATIVE (NEGATIVE); CLARITY,URINE CLEAR; COLOR,URINE YELLOW; GLUCOSE, URINE (UA) NEGATIVE (NEGATIVE); KETONES,URINE NEGATIVE (NEGATIVE); LEUKOCYTE ESTERASE ,URINE NEGATIVE (NEGATIVE); NITRITE,URINE NEGATIVE (NEGATIVE); PH,URINE 5.5 (5-9); PROTEIN,URINE NEGATIVE (NEGATIVE); RBC,URINE 0-2 /HPF; WBC,URINE 0-2 /HPF
[2022-12-22 21:30] VITALS: BP 123/70
[2022-12-22 21:52] VITALS: BP 123/70
--- NOTE | 2022-12-25 08:30 | Physician Query-Final Dx ---
CORRINA,12/25/22 0830: Clinic Account Progress/Dx Physician Query: Please give diagnosis Please include # weeks gestation Date of Service Dec 22, 2022 at 20:08 DOC MACKAY DO 12/26/22 1248: Clinic Account Progress/Dx DIAGNOSIS: Diagnosis 30 wk GA cramping n/v CORRINA,AprDec 25, 2022 08:30 DOC MACKAY DO Dec 26, 2022 12:48
== END 2022-12-22 21:55 | disposition home or self-care (01) ==
LOC: WSo 20:08 → LDRP 20:08 → WSo 21:55
PROVIDERS: ATTEND Family Medicine
DX: O26.893 Other specified pregnancy related conditions, third trimester (principal); Z3A.30 30 weeks gestation of pregnancy
CPT/HCPCS: 81000; 87088; 99213

== ENCOUNTER 2023-01-12 17:05 | Outpatient (CLI) | payer MEDICAID ==
[~2023-01-12] VITALS: Ht 162.6 cm; Wt 93.7 kg
[~2023-01-12 17:05] MED LIST changes: +ASPI-999 PO
[2023-01-12 17:39] VITALS: BP 123/64
[2023-01-12 17:49] LABS: AMORPHOUS SEDIMENT,UR FEW AMOR PHOSPHATE /LPF; BACTERIA,URINE FEW /HPF; BILIRUBIN,URINE NEGATIVE (NEGATIVE); CLARITY,URINE CLEAR; COLOR,URINE YELLOW; GLUCOSE, URINE (UA) NEGATIVE (NEGATIVE); KETONES,URINE NEGATIVE (NEGATIVE); LEUKOCYTE ESTERASE ,URINE TRACE (NEGATIVE); NITRITE,URINE NEGATIVE (NEGATIVE); PROTEIN,URINE NEGATIVE (NEGATIVE)
--- NOTE | 2023-01-12 19:28 | OB Triage Report ---
OCTAVIO LAIRD MD,RESIDENT 01/12/231927: Standard Progress Note Progress Notes/Assess & Plan Date Seen by a Provider: Jan 12, 2023 Time Seen by a Provider: 18:30 Expected Date of Delivery: Feb 25, 2023 Gestational Age in Weeks: 33 Gestational Age in Days: 5 LMP/SURYA Comment: LMP 05/15/22 SURYA 02/25/23 Progress/Assessment & Plan Pt is a 22 yo at 33wk5d who presented to the ED with concern for PPROM. She states that for the last couple of days she has been leaking fluid. She was seen in the clinic yesterday, amnisure was negative at that time, and her UA was unremarkable as well. She was advised to report to the hospital if she felt an increase in fluid leakage. She reports that today she felt more leakage of pink fluid since this morning. She denies feeling contractions, or gross vaginal bleeding, she can feel baby move well. She denies vaginal pruritis or irritation. She does have a h/o gential herpes. She reports that she last had unprotected sexual intercourse around 12/27/22 with her whom she is from. She states that he has been having intercourse with other partners, but he uses protection during those times. SSE: Thick white discharge, no odor. No pooling. No vaginal lesions Amnisure NEG x2 Fern test NEG Swabs pending for: BV Trichomoniasis GC/CH UA: few bacteria, trace leuks UCx pending Assessment: Likely STI vs yeast infection vs physiologic discharge PLAN: Negative for PPROM Await culture results, if positive will send prescription for appropriate treatment outpatient Final Diagnosis Threatened PPROM Diagnosis/Problems Diagnosis/Problems (1) Threatened premature labor in third trimester (2) History of premature delivery MORENITA BAEZ MD 01/13/23 0854: Supervisory-Addendum Brief Supervisory Addendum I discussed case with resident and concur with resident documentation of history, physical exam, assessment and treatment plan unless otherwise noted. OCTAVIO LAIRD MD,RESIDENT Jan 12, 2023 19:28 MORENITA BAEZ MD Jan 13, 2023 08:54
== END 2023-01-12 19:46 ==
LOC: LDRP 17:05 → UNDOADMOB 17:05 → WSo 17:05 → LDRP 17:05 → EDSTATUS 17:14 → WSo 19:46
PROVIDERS: ATTEND Family Medicine
DX: O42.913 Preterm premature rupture of membranes, unspecified as to length of time between rupture and onset of labor, third trimester (principal); Z3A.33 33 weeks gestation of pregnancy
CPT/HCPCS: 36415; 81000; 87088; 87210; 87491; 87591; 89060; 99213

== ENCOUNTER 2023-01-25 14:43 | Outpatient (CLI) | payer MEDICAID ==
[~2023-01-25] VITALS: Ht 162.6 cm; Wt 96.1 kg
[2023-01-25 15:05] VITALS: BP 142/81
[2023-01-25] MEDS ORDERED: FAMOTIDINE 20 MG TABLET PO ONE (15:30)
[2023-01-25 15:33] LABS: BACTERIA,URINE MODERATE /HPF; BILIRUBIN,URINE NEGATIVE (NEGATIVE); CLARITY,URINE CLEAR; COLOR,URINE YELLOW; GLUCOSE, URINE (UA) NEGATIVE (NEGATIVE); KETONES,URINE NEGATIVE (NEGATIVE); LEUKOCYTE ESTERASE ,URINE NEGATIVE (NEGATIVE); NITRITE,URINE NEGATIVE (NEGATIVE); PROTEIN,URINE TRACE (NEGATIVE); RBC,URINE 0-2 /HPF; WBC,URINE RARE /HPF
[2023-01-25 17:15] VITALS: BP 120/64
--- NOTE | 2023-01-31 11:59 | Physician Query-Final Dx ---
Adilene Landon 01/31/23 1159: Final Diagnosis Give Final Diagnosis Please give Final Diagnosis JEREMIE MARADIAGA DO 01/31/23 1641: Final Diagnosis Give Final Diagnosis IUP @ 35w2d elevated BP- resolved PIH labs wnl (in office) FHT reassuring DC to home Keep next appt Labor & PIH precautions. Adilene Landon Jan 31, 2023 11:59 JEREMIE MARADIAGA DO Jan 31, 2023 16:41
== END 2023-01-25 17:15 | disposition home or self-care (01) ==
LOC: LDRP 14:43 → WSo 14:43
PROVIDERS: ATTEND Obstetrics & Gynecology
DX: O16.9 Unspecified maternal hypertension, unspecified trimester (principal); Z3A.00 Weeks of gestation of pregnancy not specified
CPT/HCPCS: 81000; 99213

== ENCOUNTER 2023-02-14 05:24 | Outpatient (CLI) | payer SELFPAY ==
[~2023-02-14] VITALS: Ht 162.6 cm; Wt 100.0 kg
[2023-02-15] MEDS ORDERED: FAMO-119 PO (08:31)
== END 2023-02-15 08:53 | disposition home or self-care (01) ==
LOC: PREOP 05:24
PROVIDERS: ATTEND Obstetrics & Gynecology
DX: Z01.818 Encounter for other preprocedural examination (principal)

== ENCOUNTER 2023-02-19 10:00 | Inpatient (IN) | payer MEDICAID, OTHER ==
[2023-02-19] VITALS (10 sets, daily range): BP systolic 93–131; BP diastolic 41–78
[~2023-02-19] VITALS: Ht 162.6 cm; Wt 99.8 kg
[~2023-02-19 10:00] MED LIST changes: +FAMO-119 PO
[2023-02-19] MEDS ORDERED: CLINDAMYCIN 600 MG/50 ML IVPB 50 ML IV NR (12:00)
[2023-02-19] MEDS ORDERED: metroNIDAZOLE 500MG/100ML IVPB 100 ML IV NR (12:00)
[2023-02-19] MEDS ORDERED: CITRIC ACID/SODIUM CITRATE ORAL SOLN 30 ML PO ONE (12:15)
[2023-02-19] MEDS ORDERED: METOCLOPRAMIDE INJ 10 MG/2 ML IV ONE (12:15)
[2023-02-19] MEDS ORDERED: LACTATED RINGERS 1,000 ML 1,000 ML IV PRN (12:15)
[2023-02-19] MEDS ORDERED: CATHETER FLUSH 10 ML SYR IV PRN (12:15)
[2023-02-19] MEDS ORDERED: FAMOTIDINE INJ 20MG/2ML VIAL IV ONE (12:15)
[2023-02-19 13:37] LABS: AMPHETAMINE SCREEN, URINE NEGATIVE (NEGATIVE); BARBITURATE SCREEN URINE NEGATIVE (NEGATIVE); CANNABINOID SCREEN, URINE NEGATIVE (NEGATIVE); COCAINE SCREEN URINE NEGATIVE (NEGATIVE); METHADONE STAT NEGATIVE (NEGATIVE); OPIATE SCREEN URINE NEGATIVE (NEGATIVE); OXYCODONE STAT NEGATIVE (NEGATIVE); TRICYCLIC ANTIDEPRESSANTS SCRE NEGATIVE (NEGATIVE)
[2023-02-19 13:50] LABS: BASOPHILS % (AUTO) 0 % (0-10); EOSINOPHILS # (AUTO) 0.4 10^3/uL (0.0-0.3); EOSINOPHILS % (AUTO) 3 % (0-10); HEMATOCRIT 37 % (35-52); LYMPHOCYTES # (AUTO) 2.6 10^3/uL (1.0-4.0); LYMPHOCYTES % (AUTO) 19 % (12-44); MEAN CORPUSCULAR HEMOGLOBIN 26 pg (25-34); MEAN CORPUSCULAR HGB CONC 33 g/dL (32-36); MEAN CORPUSCULAR VOLUME 80 fL (80-99); MEAN PLATELET VOLUME 10.8 fL (9.0-12.2); MONOCYTES % (AUTO) 7 % (0-12); NEUTROPHILS # (AUTO) 9.5 10^3/uL (1.8-7.8); NEUTROPHILS % (AUTO) 70 % (42-75); PLATELET COUNT 205 10^3/uL (130-400); WHITE BLOOD COUNT 13.6 10^3/uL (4.3-11.0)
[2023-02-19] MEDS ORDERED: METOCLOPRAMIDE INJ 10 MG/2 ML ONE (15:54)
[2023-02-19] MEDS ORDERED: CITRIC ACID/SODIUM CITRATE ORAL SOLN 30 ML ONE (15:54)
[2023-02-19] MEDS ORDERED: FAMOTIDINE INJ 20MG/2ML VIAL ONE (15:55)
[2023-02-19] MEDS ORDERED: fentaNYL INJECTION 100 MCG/2 ML VIAL ONE (16:00)
--- NOTE | 2023-02-19 16:07 | History & Physical-OB ---
OB - Chief Complaint & HPI Date/Time Date of Admission: Date of Admission: Feb 19, 2023 at 11:38 Date seen by a Provider: Feb 19, 2023 Time Seen by a Provider: 15:55 Chief Complaint/History OB-Reason for Admission/Chief: Section Hx : 4 Hx Para: 3 Expected Date of Delivery: Feb 25, 2023 Gestational Age in Weeks: 39 Gestational Age in Days: 1 Indication for : desires repeat Admission Nurse Assessment Rev: Yes History of Labs O+ GBS + HIV neg Hep B/C neg RI RPR neg Other This 22yo presents to L&D for repeat LTCS. she denies LOF VB or CTXs Pt has had HO preeclampsia with previous deliveries with w1 delivery @ 33wk EGA. Pt has had good BP this . Pt has been on 81mg ASA. She verbalized understanding of the risks and benefits after we discussed them in detail. She signed consents and is ready to proceed. Allergies and Home Medications Allergies Coded Allergies: Penicillins (Verified Allergy, Unknown, 02/15/23) Patient Home Medication List Home Medication List Reviewed: Yes Aspirin (Aspirin) 81 Mg Tab.chew, 81 MG PO DAILY PRN, (Reported) Entered as Reported by: DAR RICO on 12/22/222024 Last Action: Reviewed Famotidine (Pepcid) 20 Mg Tablet, 20 MG PO NEEDED, (Reported) Entered as Reported by: Virgie Mercado on 02/15/23 0831 Last Action: Reviewed Vit No.124/Iron/FA ( Vitamin Tablet) 1 Each Tablet, 1 EACH PO DAILY, (Reported) Entered as Reported by: MIGUEL ÁNGEL SHAHID on 04/13/192021 Last Action: Reviewed Discontinued Medications Acetaminophen (Acetaminophen) 500 Mg Tablet, 1,000 MG PO Q6HR Discontinued Reason: No Longer Taking Prescribed by: JACQUELIN GUEVARA on 04/23/19 0551 OB - History Hx of Present Care: Yes Ultrasounds: Normal mid trimester US Obstetrical Complications: None Medical Complications: None Information Induced Hypertension: No Maternal Gestational Diabetes: No Hemorrhage: No Obstetrical History Hx : 4 Hx Para: 2 Hx # Term Pregnancies: 1 Hx # Pregnancies: 1 Number of Living Children: 2 Hx Termination: Yes Hx Total # of Abortions (Spona: 1 Hx Induced Hypertens: Yes Delivery History Hx Blood Disorders: No Risk Variables Obstetrical Risk Variables: POA Previous Patient Past Medical History PMHx: Severe depression with more than one suicide attempt and prolonged inpatient Psychiatric hospitalizations SurgHx: CS x2 Denies Social History/Family History Alcohol Use: Denies Use Smoking Cessation: Former smoker 2nd Hand Smoke Exposure: Yes Immunizations Influenza Vaccine Up-to-Date: Yes; Up-to-Date First/Initial COVID19 Vaccine: NO Hepatitis A: Yes Hepatitis B: Yes Tetanus Booster (TDap): Less than 5yrs Rubella: immune RPR/VDRL: Negative GBS Status: Positive HBsAG: Negative OB - Admission Exam Physical Exam Vitals: Vital Signs 02/19/23 12:51 Temp 37.1 Pulse 100 Resp 18 Pulse Ox 98 O2 Delivery Room Air HEENT: NCAT Heart: Rhythm Normal Lungs: Clear Abdomen: Gravid Extremities: Normal Reflexes: Normal Cervical Dilatation: None Membranes: Intact Heart Rate: 140's Accelerations: Accelerations Present Decelerations: No Decelerations Short Term Variability: Present Nursing Home Variability: Average (6-25) Contractions on Admission: None Labs Laboratory Tests Test 02/19/23 12:00 02/19/23 13:30 Range/Units Urine Opiates Screen NEGATIVE NEGATIVE Urine Oxycodone Screen NEGATIVE NEGATIVE Urine Methadone Screen NEGATIVE NEGATIVE Urine Barbiturates Screen NEGATIVE NEGATIVE Ur Tricyclic Antidepressants Screen NEGATIVE NEGATIVE Urine Phencyclidine Screen NEGATIVE NEGATIVE Urine Amphetamines Screen NEGATIVE NEGATIVE Urine Methamphetamines Screen NEGATIVE NEGATIVE Urine Benzodiazepines Screen NEGATIVE NEGATIVE Urine Cocaine Screen NEGATIVE NEGATIVE Urine Cannabinoids Screen NEGATIVE NEGATIVE White Blood Count 13.6 H 4.3-11.0 10^3/uL Red Blood Count 4.59 3.80-5.11 10^6/uL Hemoglobin 12.0 11.5-16.0 g/dL Hematocrit 37 35-52 % Mean Corpuscular Volume 80 80-99 fL Mean Corpuscular Hemoglobin 26 25-34 pg Mean Corpuscular Hemoglobin Concent 33 32-36 g/dL Red Cell Distribution Width 14.6 H 10.0-14.5 % Platelet Count 205 130-400 10^3/uL Mean Platelet Volume 10.8 9.0-12.2 fL Immature Granulocyte % (Auto) 1 % Neutrophils (%) (Auto) 70 42-75 % Lymphocytes (%) (Auto) 19 12-44 % Monocytes (%) (Auto) 7 0-12 % Eosinophils (%) (Auto) 3 0-10 % Basophils (%) (Auto) 0 0-10 % Neutrophils # (Auto) 9.5 H 1.8-7.8 10^3/uL Lymphocytes # (Auto) 2.6 1.0-4.0 10^3/uL Monocytes # (Auto) 1.0 0.0-1.0 10^3/uL Eosinophils # (Auto) 0.4 H 0.0-0.3 10^3/uL Basophils # (Auto) 0.0 0.0-0.1 10^3/uL Immature Granulocyte # (Auto) 0.1 0.0-0.1 10^3/uL OB - Assessment/Plan/Diagnosis Assessment Assessment: section Admission Dx IUP@ 39w1d Previous CSx2 Admit for RLTCS Admission Status: Inpatient Order (span 2 midnights) Reason for Inpatient Admission: IUP@ 39w1d Previous CSx2 Admit for RLTCS Plan Plan: Section JEREMIE MARADIAGA DO Feb 19, 2023 16:07
--- NOTE | 2023-02-19 16:12 | Cesarean Section Operative ---
Procedure Procedure Note Pre-operative Diagnosis: Amalia Gonzalez is a a 22-year-old G4, P2 who presents at 39 weeks for repeat low-transverse section Post-operative Diagnosis: same Liveborn female Procedure: Repeat low transverse section Physician: JEREMIE MARADIAGA Solution Coordinator: Jeana Carl MS-IV Estimated blood loss: 400 mL Fluids: 1000 Urine Output: 150 Irrigation: 500 Disposition: Counts correct x3 Stable to RR Findings: Liveborn female , Apgars 9/9, weight 6#2oz intact placenta, 3vc, normal appearing uterus, tubes, and ovaries. Indications:Amalia Gonzalez is a 22-year-old G4, P2 who presented to labor and delivery at 39 weeks for scheduled repeat low-transverse section. She has had a history of 2 previous sections the first 1 for preeclampsia and the second 1 for preeclampsia at 33 weeks. Patient verbalized understanding of the risk benefits and alternatives. She signed consents and is ready to proceed Procedure Details: The patient was seen in pre-op and the procedure was discussed with the patient in full, including the risks, benefits, and alternatives. All questions were answered. The patient was taken to the operating room and a time out was performed, verifying patient and procedure. After spinal anesthesia was placed by our anesthesia colleagues, the patient was placed in the dorsal supine with leftward tilt for uterine displacement.~ Her abdomen was then prepped and draped in the typical sterile fashion. A Pfannenstiel skin incision was made using a scalpel and carried down through the underlying fascia. The fascia was incised in the midline and tented up using Azucena clamps. On both the inferior and superior fascia side the rectus muscle was dissected off bluntly and sharply using Rawls scissors. The peritoneum was identified and entered bluntly in the midline. This was then stretched laterally using manual strength. After entering the abdominal cavity and confirming lack of intraperitoneal adhesions, a large French retractor was placed and the lower uterine segment was visualized. A bladder flap was created with the use of Metzenbaum scissors.~ A scalpel was utilized to make a low transverse uterine incision. Amniotomy was performed with an Allis clamp with return of clear fluid. The infant's head was grasped and brought to the level of the incision. Fundal pressure was applied and was delivered with the aid of Santos forceps without difficulty. Mouth and nares were suctioned with bulb suction. After the umbilical cord was clamped and cut, the was handed off to the pediatric staff. A sample of cord blood was then obtained. The placenta was delivered intact via uterine massage. The uterus was exteriorized and cleared of all clots and debris. The uterine incision was closed using 0 Vicryl in a running locked fashion. A second imbricated layer was placed using 0 Vicryl in a running fashion as well. The uterus was flexed forward and the posterior rectouterine space was inspected and cleared of all clots and debris. Again the hysterotomy site was examined and hemostasis was observed. The bilateral tubes and ovaries appeared normal. The uterus was placed back into the abdominal cavity and abdominal gutters were cleared of all clots and debris. A final check of the uterine incision showed it to be hemostatic. The peritoneum was closed using 0 Vicryl in a running fashion. The fascia was closed with 1 Vicryl in a running fashion. The subcutaneous space was hemostatic, and irrigated. The subcutaneous space was closed with 2-0 Vicryl in several single interrupted stitches. The skin was then closed using 4-0 Monocryl in a running subcuticular fashion. The skin edges were reapproximated together and were hemostatic. Dermabond dressing was applied. All sponge, lap and needle counts were correct at the end of the procedure per nursing. Vitals - Labs Vital Signs - I&O Vital Signs Date Time Temp Pulse Resp B/P (MAP) Pulse Ox O2 Delivery O2 Flow Rate FiO2 02/19/23 12:51 37.1 100 18 98 Room Air Labs Laboratory Tests 02/19/23 12:00: Urine Opiates Screen NEGATIVE, Urine Oxycodone Screen NEGATIVE, Urine Methadone Screen NEGATIVE, Urine Barbiturates Screen NEGATIVE, Ur Tricyclic Antidepressants Screen NEGATIVE, Urine Phencyclidine Screen NEGATIVE, Urine Amphetamines Screen NEGATIVE, Urine Methamphetamines Screen NEGATIVE, Urine Benzodiazepines Screen NEGATIVE, Urine Cocaine Screen NEGATIVE, Urine Cannabinoids Screen NEGATIVE 02/19/23 13:30: White Blood Count 13.6H, Red Blood Count 4.59, Hemoglobin 12.0, Hematocrit 37, Mean Corpuscular Volume 80, Mean Corpuscular Hemoglobin 26, Mean Corpuscular Hemoglobin Concent 33, Red Cell Distribution Width 14.6H, Platelet Count 205, Mean Platelet Volume 10.8, Immature Granulocyte % (Auto) 1, Neutrophils (%) (Auto) 70, Lymphocytes (%) (Auto) 19, Monocytes (%) (Auto) 7, Eosinophils (%) (Auto) 3, Basophils (%) (Auto) 0, Neutrophils # (Auto) 9.5H, Lymphocytes # (Auto) 2.6, Monocytes # (Auto) 1.0, Eosinophils # (Auto) 0.4H, Basophils # (Auto) 0.0, Immature Granulocyte # (Auto) 0.1 JEREMIE MARADIAGA DO Feb 19, 2023 16:12
--- NOTE | 2023-02-19 16:14 | Discharge Summary ---
Discharge Summary Hospital Course Problems Reviewed?: Yes Hospital Course Date of Admission: Feb 19, 2023 at 11:38 Admission Diagnosis : Family Physician/Provider: Kat Nolasco MD Date of Discharge: 02/19/23 Discharge Diagnosis: Repeat LTCS Hospital Course: Patient was admitted for repeat low-transverse section she delivered a liveborn did very well intraoperatively and her postoperative course was uneventful. She was discharged home on postop day #2 with pain medications and instructions Labs and Pending Lab Test: Laboratory Tests 02/19/23 12:00: Urine Opiates Screen NEGATIVE, Urine Oxycodone Screen NEGATIVE, Urine Methadone Screen NEGATIVE, Urine Barbiturates Screen NEGATIVE, Ur Tricyclic Antidepressants Screen NEGATIVE, Urine Phencyclidine Screen NEGATIVE, Urine Amphetamines Screen NEGATIVE, Urine Methamphetamines Screen NEGATIVE, Urine Benzodiazepines Screen NEGATIVE, Urine Cocaine Screen NEGATIVE, Urine Cannabinoids Screen NEGATIVE 02/19/23 13:30: White Blood Count 13.6H, Red Blood Count 4.59, Hemoglobin 12.0, Hematocrit 37, Mean Corpuscular Volume 80, Mean Corpuscular Hemoglobin 26, Mean Corpuscular Hemoglobin Concent 33, Red Cell Distribution Width 14.6H, Platelet Count 205, Mean Platelet Volume 10.8, Immature Granulocyte % (Auto) 1, Neutrophils (%) (Auto) 70, Lymphocytes (%) (Auto) 19, Monocytes (%) (Auto) 7, Eosinophils (%) (Auto) 3, Basophils (%) (Auto) 0, Neutrophils # (Auto) 9.5H, Lymphocytes # (Auto) 2.6, Monocytes # (Auto) 1.0, Eosinophils # (Auto) 0.4H, Basophils # (Au to) 0.0, Immature Granulocyte # (Auto) 0.1 Home Meds Active Reported Pepcid (Famotidine) 20 Mg Tablet 20 Mg PO NEEDED Aspirin 81 Mg Tab.chew 81 Mg PO DAILY PRN Vitamin Tablet ( Vit No.124/Iron/FA) 1 Each Tablet 1 Each PO DAILY Patient Discharge Instructions Follow-up 2 weeks Nothing in vagina no tampons sex or douches Call if increased pain temperature over 101 F or increased bleeding Activity: Activity as Tolerated Driving Instructions: No Driving for 1 Week NO SMOKING: NO SMOKING Nothing Inside Vagina: No Douching, No Furman, No Tampons Discharge Diet: Regular Diet Symptoms to Report to : Pain Increased, Constipation(Persistant), Fever Over 101 Degrees F, Pain/Pressure in Chest, Vaginal Bleeding Increase, Vaginal Discharge Foul For Any Problems or Questions: Go to Emergency Room Infection Signs and Symptoms: Increased Redness, Foul Odor of Wound, Increased Drainage, Skin Itchy or Has a Rash, Increased Swelling, Temperature Above 101 F Operative Area Clean and Dry: Keep Incision Clean/Dry Stitches/[place]/Dermabond: Dermabond Discharge Physical Examination Allergies: Coded Allergies: Penicillins (Verified Allergy, Unknown, 02/15/23) Vitals & I&Os Vital Signs Date Time Temp Pulse Resp B/P (MAP) Pulse Ox O2 Delivery O2 Flow Rate FiO2 02/19/23 12:51 37.1 100 18 98 Room Air Discharge Summary Date of Admission Feb 19, 2023 at 11:38 Date of Discharge Supervisory-Addendum Brief Verification & Attestation Participated in pt care: history, MDM, physical Personally performed: exam, history, MDM, supervision of care Care discussed with: Medical Student Procedures: n/a Results interpretation: Verified all documentation I personally saw and examined this pt. JEREMIE MARADIAGA DO Feb 19, 2023 16:14
[2023-02-19] MEDS ORDERED: NALOXONE 0.4 MG/ML 1 ML VIAL IV PRN (16:15)
[2023-02-19] MEDS ORDERED: OXYTOCIN DRIP PRE-MIX 500 ML IV SCH (16:15)
[2023-02-19] MEDS ORDERED: Tetanus/Diphtheria/Pertussis (Acell) ADULT Vaccine 0.5 ML IM SCH (16:15)
[2023-02-19] MEDS ORDERED: morphine INJ 4 MG/ML 1 ML (VIAL/SYRINGE) IV PRN (16:15)
[2023-02-19] MEDS ORDERED: MEASLES, MUMPS, RUBELLA VACCINE (MMR) SC SCH (16:15)
[2023-02-19] MEDS ORDERED: ONDANSETRON INJECTION 4 MG/2 ML (SDV) ONE (16:34)
[2023-02-19] MEDS ORDERED: dexAMETHasone INJ 10 MG/ML 1 ML VIAL ONE (16:34)
[2023-02-19] MEDS ORDERED: PHENYLEPHRINE 100 MCG/ML 10 ML (ANESTHESIA) SYR ONE (16:34)
[2023-02-19] MEDS ORDERED: BUPIVACAINE 0.5% 30 ML VIAL ONE (16:44)
[2023-02-19] MEDS ORDERED: OXYTOCIN DRIP PRE-MIX 500 ML IV ONE (17:11)
[2023-02-19] MEDS: KETOROLAC INJ 30 MG/ML VIAL IV SCH ×2 (17:35→23:26)
[2023-02-19] MEDS: DOCUSATE SODIUM 100 MG CAPSULE PO SCH (20:25)
[2023-02-19] MEDS: ACETAMINOPHEN 500 MG TABLET PO SCH (20:25)
[2023-02-19] MEDS ORDERED: CATHETER FLUSH 10 ML SYR IV SCH (22:00)
[2023-02-19] MEDS ORDERED: ACHD5005 PO (22:14)
[2023-02-19] MEDS ORDERED: IBUP-1780 PO (22:14)
[2023-02-19] MEDS ORDERED: DOCU100C37 PO (22:14)
[2023-02-20] MEDS: oxyCODONE IMMEDIATE RELEASE 5 MG TABLET PO PRN ×3 (01:37→16:45)
[2023-02-20] MEDS: ACETAMINOPHEN 500 MG TABLET PO SCH ×4 (02:31→23:25)
[2023-02-20 03:30] VITALS: BP 120/67
[2023-02-20 06:21] LABS: BASOPHILS % (AUTO) 0 % (0-10); EOSINOPHILS % (AUTO) 0 % (0-10); HEMATOCRIT 33 % (35-52); HEMOGLOBIN 10.7 g/dL (11.5-16.0); LYMPHOCYTES # (AUTO) 2.1 10^3/uL (1.0-4.0); LYMPHOCYTES % (AUTO) 10 % (12-44); MEAN CORPUSCULAR HEMOGLOBIN 26 pg (25-34); MEAN CORPUSCULAR HGB CONC 32 g/dL (32-36); MEAN CORPUSCULAR VOLUME 79 fL (80-99); MEAN PLATELET VOLUME 11.4 fL (9.0-12.2); MONOCYTES # (AUTO) 1.3 10^3/uL (0.0-1.0); MONOCYTES % (AUTO) 6 % (0-12); NEUTROPHILS # (AUTO) 18.3 10^3/uL (1.8-7.8); NEUTROPHILS % (AUTO) 83 % (42-75); PLATELET COUNT 204 10^3/uL (130-400); WHITE BLOOD COUNT 21.9 10^3/uL (4.3-11.0)
[2023-02-20] MEDS: KETOROLAC INJ 30 MG/ML VIAL IV SCH ×2 (06:49→12:54)
[2023-02-20 07:13] LABS: LYMPHOCYTES % (MANUAL) 10 %; MICROCYTOSIS SLIGHT; MONOCYTES % (MANUAL) 3 %; NEUTROPHILS % (MANUAL) 87 %; TOXIC GRANULATION/VACUOLAZATIO 1+
--- NOTE | 2023-02-20 07:13 | Postpartum Progress Note ---
Post Op Post-operative Day #1 Subjective: Patient is postop day #1 status post repeat LTCS doing well no concerns. She is ambulating. [place] has been removed. She is tolerating a regular diet. Her pain is well controlled. Patient is breast and formula feeding Objective: VSS AF Physical Exam: General - Alert and oriented, no apparent distress Breast symmetrical no erythema or edema or engorgement Abdomen - Soft, appropriately tender to palpation, non-distended, fundus firm at umbilicus Incision - clean, dry and intact; no erythema or induration, no drainage Lochia minimal Extremities - no edema, negative Bryan's bilaterally Assessment: [] post-operative day # 1 status post Repeat LTCS Recovering well, hemodynamically stable Plan: Routine post-operative care. Encourage breast feeding. Encourage ambulation. VTE prophylaxis: SCDs. Ferrous sulfate supplementation. Plan for discharge [] Vitals - Labs Vital Signs - I&O Vital Signs Date Time Temp Pulse Resp B/P (MAP) Pulse Ox O2 Delivery O2 Flow Rate FiO2 02/20/23 03:30 36.4 92 20 120/67 (84) 96 Room Air 02/19/23 23:35 Room Air 02/19/23 23:35 37.1 95 20 127/64 (85) 97 Room Air 02/19/23 18:10 36.1 82 18 120/78 (92) 98 Room Air 02/19/23 18:00 Room Air 02/19/23 18:00 36.6 20 114/62 (79) 99 Room Air 02/19/23 17:50 Room Air 02/19/23 17:45 18 111/62 (78) 99 Room Air 02/19/23 17:40 Room Air 02/19/23 17:40 18 93/41 (58) 99 Room Air 02/19/23 17:31 Room Air 02/19/23 17:30 18 111/68 (82) 99 Room Air 02/19/23 17:25 Room Air 02/19/23 17:20 20 105/56 (72) 100 Room Air 02/19/23 17:13 36.4 20 110/59 (76) 99 Room Air 02/19/23 17:13 Room Air 02/19/23 12:51 37.1 100 18 98 Room Air I & O 02/20/23 06:59 Intake Total 400 ml Output Total 1850 ml Balance -1450 ml Labs Laboratory Tests 02/19/23 12:00: Urine Opiates Screen NEGATIVE, Urine Oxycodone Screen NEGATIVE, Urine Methadone Screen NEGATIVE, Urine Barbiturates Screen NEGATIVE, Ur Tricyclic Antidepressants Screen NEGATIVE, Urine Phencyclidine Screen NEGATIVE, Urine Amphetamines Screen NEGATIVE, Urine Methamphetamines Screen NEGATIVE, Urine Benzodiazepines Screen NEGATIVE, Urine Cocaine Screen NEGATIVE, Urine Cannabinoids Screen NEGATIVE 02/19/23 13:30: White Blood Count 13.6H, Red Blood Count 4.59, Hemoglobin 12.0, Hematocrit 37, Mean Corpuscular Volume 80, Mean Corpuscular Hemoglobin 26, Mean Corpuscular Hemoglobin Concent 33, Red Cell Distribution Width 14.6H, Platelet Count 205, Mean Platelet Volume 10.8, Immature Granulocyte % (Auto) 1, Neutrophils (%) (Auto) 70, Lymphocytes (%) (Auto) 19, Monocytes (%) (Auto) 7, Eosinophils (%) (Auto) 3, Basophils (%) (Auto) 0, Neutrophils # (Auto) 9.5H, Lymphocytes # (Auto) 2.6, Monocytes # (Auto) 1.0, Eosinophils # (Auto) 0.4H, Basophils # (Auto) 0.0, Immature Granulocyte # (Auto) 0.1 02/20/23 05:42: White Blood Count 21.9H, Red Blood Count 4.17, Hemoglobin 10.7L, Hematocrit 33L, Mean Corpuscular Volume 79L, Mean Corpuscular Hemoglobin 26, Mean Corpuscular Hemoglobin Concent 32, Red Cell Distribution Width 14.2, Platelet Count 204, Mean Platelet Volume 11.4, Immature Granulocyte % (Auto) 1, Neutrophils (%) (Auto) 83H, Lymphocytes (%) (Auto) 10L, Monocytes (%) (Auto) 6, Eosinophils (%) (Auto) 0, Basophils (%) (Auto) 0, Neutrophils # (Auto) 18.3H, Lymphocytes # (Auto) 2.1, Monocytes # (Auto) 1.3H, Eosinophils # (Auto) 0.0, Basophils # (Auto) 0.0, Immature Granulocyte # (Auto) 0.2H JEREMIE MARADIAGA DO Feb 20, 2023 07:13
[2023-02-20 09:40] VITALS: BP 125/69
[2023-02-20] MEDS: DOCUSATE SODIUM 100 MG CAPSULE PO SCH ×2 (09:49→20:30)
--- NOTE | 2023-02-20 12:59 | Anesthesia-Regional Post-Op ---
Regional Patient Condition Mental Status: Alert, Oriented x3 Circulation: Same as Pre-Op Headache: Absent Sensation: Full Recovery Motor Block: Absent Post Op Complications Complications None Follow Up Care/Instructions Patient Instructions None needed. Anesthesia/Patient Condition Patient is doing well, no complaints, stable vital signs, no apparent adverse anesthesia problems. No complications reported per nursing. FERNY RIVERA CRNA Feb 20, 2023 12:58
[2023-02-20 13:00] VITALS: BP 121/60
[2023-02-20 16:40] VITALS: BP 109/67
[2023-02-20 20:28] VITALS: BP 119/62
[2023-02-20] MEDS: IBUPROFEN 800 MG TABLET PO SCH (20:30)
[2023-02-20] MEDS ORDERED: GLYCERIN ADULT SUPPOSITORY PR ONE (22:30)
[2023-02-20] MEDS ORDERED: BISACODYL 10 MG SUPPOSITORY PR ONE (23:15)
[2023-02-21 03:43] VITALS: BP 120/58
[2023-02-21] MEDS: IBUPROFEN 800 MG TABLET PO SCH ×2 (04:00→12:32)
[2023-02-21 06:09] VITALS: BP 106/59
[2023-02-21] MEDS: ACETAMINOPHEN 500 MG TABLET PO SCH ×2 (06:10→12:30)
[2023-02-21] MEDS: oxyCODONE IMMEDIATE RELEASE 5 MG TABLET PO PRN ×2 (06:25→14:39)
[2023-02-21 09:15] VITALS: BP 118/58
[2023-02-21] MEDS: DOCUSATE SODIUM 100 MG CAPSULE PO SCH (09:35)
[2023-02-21 12:20] VITALS: BP 126/60
--- NOTE | 2023-02-21 13:00 | Postpartum Progress Note ---
Post Op Post-operative Day #2 Subjective: Patient is postop day #2 status post repeat low transverse section. She states that she is having little bit of pain she is up and ambulating. Her bleeding has decreased. She states that her older child is sick at home and not sure that she wants to go home today. She will see if he can get the sick child to stay with grandparents. She is breast and formula feeding Objective: VSS AF Physical Exam: General - Alert and oriented, no apparent distress Abdomen - Soft, appropriately tender to palpation, non-distended, fundus firm at umbilicus Incision - clean, dry and intact; no erythema or induration, no drainage Extremities - no edema, negative Bryan's bilaterally Assessment: [] post-operative day # 2 status post RLTCS Recovering well, hemodynamically stable Plan: Routine post-operative care. Encourage breast feeding. Encourage ambulation. VTE prophylaxis: ambulation Ferrous sulfate supplementation. Plan for discharge [] Vitals - Labs Vital Signs - I&O Vital Signs Date Time Temp Pulse Resp B/P (MAP) Pulse Ox O2 Delivery O2 Flow Rate FiO2 02/21/23 12:20 36.9 94 18 126/60 (82) 99 Room Air 02/21/23 09:15 36.8 88 18 118/58 (78) 99 Room Air 02/21/23 06:09 36.0 89 16 106/59 (75) 98 Room Air 02/21/23 03:43 36.4 90 18 120/58 (78) 98 Room Air 02/20/23 20:28 36.4 93 18 119/62 (81) 98 Room Air 02/20/23 16:40 36.4 94 18 109/67 (81) 100 Room Air 02/20/23 13:00 37.1 85 18 121/60 (80) 98 Room Air JEREMIE MARADIAGA DO Feb 21, 2023 13:00
[2023-02-21 16:30] VITALS: BP 126/60
== END 2023-02-21 16:30 | disposition home or self-care (01) | DRG 788 ==
LOC: LDRP 11:38 → WS 16:42
PROVIDERS: ADMIT Obstetrics & Gynecology; ATTEND Obstetrics & Gynecology
PROC: 10D00Z1 Extraction of Products of Conception, Low, Open Approach (ICD-10-PCS; principal; 2023-02-19 16:14)
DX: O34.211 Maternal care for low transverse scar from previous cesarean delivery (principal); O99.824 Streptococcus B carrier state complicating childbirth; Z87.891 Personal history of nicotine dependence; Z79.82 Long term (current) use of aspirin; Z88.0 Allergy status to penicillin; Z3A.39 39 weeks gestation of pregnancy; Z37.0 Single live birth
CPT/HCPCS: 36415; 80306; 85007; 85025; 85027; 86850; 86900; 86901; 94664

== ENCOUNTER 2023-02-23 01:07 | Emergency (ER) | payer OTHER ==
[~2023-02-23] VITALS: Ht 163 cm; Wt 88.0 kg
[~2023-02-23 01:07] MED LIST changes: +ACHD5005 PO
--- NOTE | 2023-02-23 01:24 | ED General ---
General Chief Complaint: Post OP Complications/Pain Stated Complaint: STITCHES LEFT SIDE COMING OPEN Nursing Triage Note: CONCERNED ABOUT DRAINAGE FROM . Source of Information: Patient Exam Limitations: No Limitations History of Present Illness Date Seen by Provider: Feb 23, 2023 Time Seen by Provider: 01:13 Initial Comments Here with concerns about wound opening. She did have delivery on February 19, 4 days ago. Denies fever or foul-smelling drainage. Does have some vaginal discharge but not foul-smelling. Does have some pain around the wound. Patient states she cannot see the wound but her mother was concerned that the wound was opening up. Patient follows with Dr. Jenkins. Patient states she called L&D who stated that she probably to get checked out. Timing/Duration: 1 Hour Severity: Mild Associated Systoms: No Fever/Chills, No Nausea/Vomiting Allergies and Home Medications Allergies Coded Allergies: Penicillins (Verified Allergy, Unknown, 02/15/23) Patient Home Medication List Home Medication List Reviewed: Yes Docusate Sodium (Docusate Sodium) 100 Mg Capsule, 100 MG PO BID Prescribed by: Jennifer Jenkins on 02/19/232213 Famotidine (Pepcid) 20 Mg Tablet, 20 MG PO NEEDED, (Reported) Entered as Reported by: Virgie Mercado on 02/15/23 0831 Hydrocodone/Acetaminophen (Hydrocodone-Acetamin 5-325 mg) 5 Mg-325 Mg Tablet, 1 TAB PO Q4H PRN for PAIN-MODERATE (5-7) Prescribed by: Jennifer Jenkins on 02/19/232214 Ibuprofen (Ibuprofen) 800 Mg Tablet, 800 MG PO Q8H Prescribed by: Jennifer Jenkins on 02/19/232213 Vit No.124/Iron/FA ( Vitamin Tablet) 1 Each Tablet, 1 EACH PO DAILY, (Reported) Entered as Reported by: MIGUEL ÁNGEL SHAHID on 04/13/192021 Discontinued Medications Aspirin (Aspirin) 81 Mg Tab.chew, 81 MG PO DAILY PRN, (Reported) Entered as Reported by: DAR RICO on 12/22/222024 Review of Systems Review of Systems Constitutional: see HPI; No fever, No weakness Gastrointestinal: abdominal pain (Near wound); No nausea, No vomiting Skin: No change in color; lesions (Horizontal wound) Past Bhrpjso-Whqrlc-Oygovb Hx Patient Social History Tobacco Use?: No Substance use?: No Alcohol Use?: No Pt feels they are or have been: No Immunizations Up To Date Tetanus Booster (TDap): Less than 5yrs PED Vaccines UTD: Yes First/Initial COVID19 Vaccinat: NO Second COVID19 Vaccination Bobby: NO Third COVID19 Vaccination Date: NO Seasonal Allergies Seasonal Allergies: Yes Past Medical History Surgery/Hospitalization HX: , HTN, PREECLAMPSIA, DEPRESSION, S.I. Surgeries: Yes ( X 2) Section Respiratory: Yes Asthma Currently Using CPAP: No Currently Using BIPAP: No Cardiac: Yes (HX OF PRE-ECLAMPSIA) Neurological: No Female Reproductive Disorders: Denies Sexually Transmitted Disease: Yes (HERPES) HIV/AIDS: No Genitourinary: Yes (YEAST INFECTION) UTI-Chronic Gastrointestinal: Yes Gastroesophageal Reflux Musculoskeletal: No Endocrine: Yes ("PRE-DIABETIC") HEENT: No Loss of Vision: Denies Hearing Impairment: Denies Cancer: No Psychosocial: Yes ("CUTTER"; SUICIDE ATTEMPT AT AGE 14-OVERDOSED ON TYLENOL, SCHIZOID DISORDER) Anxiety, Suicide Attempts, Schizophrenia, Depression Integumentary: No Blood Disorders: No Family Medical History Reviewed Nursing Family Hx Alcoholism 19 FATHER Alzheimer's disease PATERANL GRANDFATHER Arthritis MATERNAL GRANDFATHER (RA) Asthma MATERNAL GRANDMOTHER Cardiovascular disease MATERNAL GRANDFATHER Coronary thrombosis MATERNAL GRANDFATHER Diabetes mellitus 19 MOTHER MATERNAL GRANDMOTHER Drug abuse 19 FATHER 19 MOTHER Hypercholesterolemia MATERNAL GRANDFATHER Hypertension 19 MOTHER MATERNAL GRANDFATHER Myocardial infarction MATERNAL GRANDFATHER Psychosocial problem G8 BROTHER Respiratory disorder MATERNAL GRANDMOTHER (COPD) No Pertinent Family Hx Physical Exam Vital Signs Vital Signs - First Documented 02/23/23 01:13 Temp 37.3 Pulse 104 Resp 16 B/P (MAP) 152/97 (115) Pulse Ox 99 O2 Delivery Room Air Capillary Refill : Less Than 3 Seconds Height, Weight, BMI Height: 5'4.00" Weight: 195lbs. 0oz. 88.211584re; 33.00 BMI Method:Actual General Appearance: No Apparent Distress, WD/WN Respiratory: Lungs Clear, Normal Breath Sounds Cardiovascular: Regular Rate, Rhythm, No Murmur Neurologic/Psychiatric: Alert, Oriented x3 Skin: Warm/Dry, Other ( wound evaluated. Overall it is clean, dry and intact and there is no significant swelling or warmth noted around wound. I did gently clean wound with sterile saline and gauze and did not note any significant drainage or blood. There is some glue noted that is obviously stained but is not actively bleeding or draining at this time. No foul-smelling drainage noted.) Progress/Results/Core Measures Suspected Sepsis SIRS Temperature: Pulse: 104 Respiratory Rate: 16 Blood Pressure 152 /97 Mean: 115 Results/Orders Vital Signs/I&O 02/23/23 01:13 Temp 37.3 Pulse 104 Resp 16 B/P (MAP) 152/97 (115) Pulse Ox 99 O2 Delivery Room Air Capillary Refill : Less Than 3 Seconds Blood Pressure Mean: 115 Progress Note : Progress Note Seen and evaluated. Wound evaluated and I do not see any dehiscence or significant drainage. Patient reassured. Discharged home with return precautions. Patient verbalized understanding of instructions and agreement with plan. Departure Impression Primary Impression: Encounter for postoperative wound check Disposition: HOME, SELF-CARE Condition: Stable Departure-Patient Inst. Decision time for Depature: 01:22 Referrals: BIA HAMMOND MD (PCP/Family) Primary Care Physician Patient Instructions: ( Delivery) (DC), SECTION DISCHARGE Add. Discharge Instructions: Follow-up with Dr. Jenkins for recheck and further evaluation. Call office tomorrow and let them know that you were seen tonight. Wound appears okay at this point. Return for foul-smelling drainage, foul-smelling discharge vaginally, fever, increasing pain, obvious wound opening or other concerns as needed. You may use dry dressing over wound to collect any drainage. Copy Copies To 1: JENNIFER JENKINS TIMOTHY D MD Feb 23, 2023 01:24
[2023-02-23 01:25] VITALS: BP 129/94
== END 2023-02-23 01:28 | disposition home or self-care (01) ==
LOC: EDUNIT# 01:07 → ER 01:11
DX: Z48.89 Encounter for other specified surgical aftercare (principal)
CPT/HCPCS: 99281